=== PATIENT | male | born 1985 | race Caucasian/White ===

== ENCOUNTER 2017-10-21 13:04 | Emergency (ER) | payer MEDICAID, OTHER ==
[2017-10-21 13:21] VITALS: RESP 18
[2017-10-21] MEDS ORDERED: SODIUM CHLORIDE 0.9% 1,000 ML IV STA (13:41)
[2017-10-21] MEDS ORDERED: SODIUM CHLORIDE 0.9% 500 ML IV STA (13:41)
[2017-10-21] MEDS ORDERED: ONDANSETRON 4 MG/2 ML VIAL IVP STA (13:41)
[2017-10-21] MEDS ORDERED: KETOROLAC 30 MG/ML 1 ML VIAL IVP STA (13:41)
[2017-10-21] MEDS ORDERED: DICYCLOMINE 10 MG/ML 2 ML AMP IM STA (13:41)
[2017-10-21] MEDS ORDERED: RX INFO: IV CONTRAST WAS GIVEN 1 EACH MISC MISCELLANE PRN (13:41)
--- NOTE | 2017-10-21 13:56 | ED ---
General Adult HPI - General Chief complaint: Nausea/Vomiting/Diarrhea Stated complaint: diarrhea Time Seen by Provider: 10/21/17 13:24 Source: patient, RN notes reviewed, old records reviewed Mode of arrival: ambulatory Limitations: no limitations - History of Present Illness Initial comments: This is a 32-year-old male to the ER for evaluation today. Patient resents today for evaluation regards to nausea and vomiting abdominal pain cramping and diarrhea. Multiple shows diarrhea per day. Cramping 2 months. Patient states he always has occasional abdominal pain and pain in his back and right flank. No prior evaluation. No blood in his stool, no vomiting the patient does feel nauseous. He denies any weight loss - Related Data Home Medications Medication Instructions Recorded Confirmed No Known Home Medications [No 10/21/17 10/21/17 Known Home Medications] Allergies Allergy/AdvReac Type Severity Reaction Status Date / Time No Known Allergies Allergy Verified 10/21/17 13:49 Review of Systems ROS Statement: Those systems with pertinent positive or pertinent negative responses have been documented in the HPI. ROS Other: All systems not noted in ROS Statement are negative. Past Medical History Past Medical History: Thyroid Disorder Additional Past Medical History / Comment(s): Hypothyroidism History of Any Multi-Drug Resistant Organisms: None Reported Past Surgical History: No Surgical Hx Reported Past Psychological History: Depression Smoking Status: Never smoker Past Alcohol Use History: None Reported Past Drug Use History: None Reported - Past Family History Father Family Medical History: Congestive Heart Failure (CHF) Additional Family Medical History / Comment(s): Father at age 60 from heart failure. Mother Additional Family Medical History / Comment(s): Mother is healthy at age 60. Sister(s) Additional Family Medical History / Comment(s): He has one sister that is healthy. Brother(s) Additional Family Medical History / Comment(s): Patient has 1 brother that at age 25 from complications of alcoholism General Exam Limitations: no limitations General appearance: alert, in no apparent distress Head exam: Present: atraumatic, normocephalic, normal inspection Eye exam: Present: normal appearance, PERRL, EOMI. Absent: scleral icterus, conjunctival injection, periorbital swelling ENT exam: Present: normal exam, mucous membranes moist Neck exam: Present: normal inspection. Absent: tenderness, meningismus, lymphadenopathy Respiratory exam: Present: normal lung sounds bilaterally. Absent: respiratory distress, wheezes, rales, rhonchi, stridor Cardiovascular Exam: Present: regular rate, normal rhythm, normal heart sounds. Absent: systolic murmur, diastolic murmur, rubs, gallop, clicks GI/Abdominal exam: Present: soft, normal bowel sounds. Absent: distended, tenderness, guarding, rebound, rigid Extremities exam: Present: normal inspection, full ROM, normal capillary refill. Absent: tenderness, pedal edema, joint swelling, calf tenderness Back exam: Present: normal inspection Neurological exam: Present: alert, oriented X3, CN II-XII intact Psychiatric exam: Present: normal affect, normal mood Skin exam: Present: warm, dry, intact, normal color. Absent: rash Course Vital Signs 10/21/17 13:19 Temperature 97.8 F Pulse Rate 88 Respiratory 18 Rate Blood Pressure 144/97 O2 Sat by Pulse 99 Oximetry Medical Decision Making - Medical Decision Making 29 female the ER for evaluation, positive constipation fecal stasis with diarrhea. Patient can be discharged home - Lab Data Result diagrams: 10/21/17 13:51 10/21/17 13:51 Lab Results 10/21/17 10/21/17 10/21/17 Range/Units 13:51 13:51 13:51 WBC 7.7 (3.8-10.6) k/uL RBC 5.48 (4.30-5.90) m/uL Hgb 17.7 H (13.0-17.5) gm/dL Hct 51.7 (39.0-53.0) % MCV 94.3 (80.0-100.0) fL MCH 32.3 (25.0-35.0) pg MCHC 34.2 (31.0-37.0) g/dL RDW 12.1 (11.5-15.5) % Plt Count 275 (150-450) k/uL Neutrophils % 67 % Lymphocytes % 24 % Monocytes % 7 % Eosinophils % 1 % Basophils % 0 % Neutrophils # 5.1 (1.3-7.7) k/uL Lymphocytes # 1.9 (1.0-4.8) k/uL Monocytes # 0.5 (0-1.0) k/uL Eosinophils # 0.1 (0-0.7) k/uL Basophils # 0.0 (0-0.2) k/uL Sodium 142 (137-145) mmol/L Potassium 4.0 (3.5-5.1) mmol/L Chloride 102 (98-107) mmol/L Carbon Dioxide 28 (22-30) mmol/L Anion Gap 12 mmol/L BUN 12 (9-20) mg/dL Creatinine 0.80 (0.66-1.25) mg/dL Est GFR (CKD-EPI)AfAm >90 (>60 ml/min/1.73 sqM) Est GFR (CKD-EPI)NonAf >90 (>60 ml/min/1.73 sqM) Glucose 95 (74-99) mg/dL Calcium 9.6 (8.4-10.2) mg/dL Phosphorus 3.1 (2.5-4.5) mg/dL Magnesium 2.3 (1.6-2.3) mg/dL Total Bilirubin 0.7 (0.2-1.3) mg/dL AST 87 H (17-59) U/L ALT 220 H (21-72) U/L Alkaline Phosphatase 94 (38-126) U/L Total Creatine Kinase 124 (55-170) U/L CK-MB (CK-2) 0.5 (0.0-2.4) ng/mL CK-MB (CK-2) Rel Index 0.4 Total Protein 7.5 (6.3-8.2) g/dL Albumin 4.8 (3.5-5.0) g/dL - Radiology Data Radiology results: report reviewed (CT abdomen and pelvis shows possible fecal stasis,), image reviewed Disposition Clinical Impression: Dehydration, Constipation, Abdominal pain, Diarrhea Disposition: HOME SELF-CARE Condition: Good Instructions: Acute Nausea and Vomiting (ED), Acute Diarrhea (ED) Is patient prescribed a controlled substance at d/c from ED?: No Referrals: None,Stated [Primary Care Provider] - 1-2 days
[2017-10-21 14:01] LABS: Basophils % (A) 0 %; Eosinophils # (A) 0.1 k/uL (0-0.7); Eosinophils % (A) 1 %; HCT 51.7 % (39.0-53.0); HGB 17.7 gm/dL (13.0-17.5); Lymphocytes # (A) 1.9 k/uL (1.0-4.8); Lymphocytes % (A) 24 %; MCH 32.3 pg (25.0-35.0); MCHC 34.2 g/dL (31.0-37.0); MCV 94.3 fL (80.0-100.0); Monocytes # (A) 0.5 k/uL (0-1.0); Monocytes % (A) 7 %; Neutrophils # (A) 5.1 k/uL (1.3-7.7); Neutrophils % (A) 67 %; Platelet Count 275 k/uL (150-450); RBC 5.48 m/uL (4.30-5.90); RDW 12.1 % (11.5-15.5); WBC 7.7 k/uL (3.8-10.6)
[2017-10-21 14:10] LABS: ALT 220 U/L (21-72); AST 87 U/L (17-59); Albumin 4.8 g/dL (3.5-5.0); Alkaline Phosphatase 94 U/L (38-126); Anion Gap 12 mmol/L; Blood Urea Nitrogen 12 mg/dL (9-20); Calcium 9.6 mg/dL (8.4-10.2); Carbon Dioxide 28 mmol/L (22-30); Chloride 102 mmol/L (98-107); Glucose 95 mg/dL (74-99); Magnesium 2.3 mg/dL (1.6-2.3); Phosphorus 3.1 mg/dL (2.5-4.5); Sodium 142 mmol/L (137-145); Total Bilirubin 0.7 mg/dL (0.2-1.3); Total Protein 7.5 g/dL (6.3-8.2)
[2017-10-21 14:32] LABS: Creatine Kinase MB 0.5 ng/mL (0.0-2.4)
--- NOTE | 2017-10-21 15:17 | CT ---
EXAMINATION TYPE: CT abdomen pelvis w con DATE OF EXAM: 10/21/2017 COMPARISON: NONE HISTORY: Diarrhea, Rectal bleeding and Abdominal pain for [address] DLP: 1180 mGycm Automated exposure control for dose reduction was used. TECHNIQUE: Helical acquisition of images from the lung bases through the pelvis have been completed. CONTRAST: Performed without Oral Contrast and with IV Contrast, patient injected with 100 ml mL of Isovue 300. FINDINGS: LUNG BASES: No significant abnormality is appreciated. AORTA: No significant abnormality is appreciated. LIVER/GB: No significant abnormality is appreciated. PANCREAS: No significant abnormality is seen. SPLEEN: No significant abnormality is seen. ADRENALS: No significant abnormality is seen. KIDNEYS: No significant abnormality is seen. REPRODUCTIVE ORGANS: No significant abnormality is seen BOWEL: Retained fecal debris present within the colon. FREE AIR: No Free Air visible. ASCITES: None visible. PELVIC ADENOPATHY: None visualized. RETROPERITONEAL ADENOPATHY: No Retroperitoneal Adenopathy visible. URINARY BLADDER: No significant abnormality is seen. OSSEOUS STRUCTURES: No significant abnormality is seen. IMPRESSION: CORRELATE FOR FECAL STASIS.
[2017-10-21 15:47] VITALS: BP 140/82; PULSE 87; TEMP 97
== END 2017-10-21 15:47 | disposition home or self-care (01) ==
LOC: EC 13:04
DX: E86.0 Dehydration (principal); K59.00 Constipation, unspecified; R19.7 Diarrhea, unspecified; M54.9 Dorsalgia, unspecified
CPT/HCPCS: 36415; 80053; 82550; 82553; 83735; 84100; 85025; 74177; 99284; 96374; 96375; 96361; 96372; J0500; J2405; J1885; Q9967

== ENCOUNTER 2020-10-20 19:25 | Inpatient (IN) | payer MEDICAID, OTHER ==
--- NOTE | 2020-10-20 20:24 | ED ---
Psych HPI - General Chief Complaint: Psychiatric Symptoms Stated Complaint: Mental health Time Seen by Provider: 10/20/20 19:43 Source: patient Mode of arrival: ambulatory - History of Present Illness Initial Comments: Patient is a 35-year-old male presenting to the emergency department for psychiatric evaluation. Patient was accompanied by police, they had a court ordered pickup order for mental health evaluation. Patient was petitioned by his mother. According to the petition, mother states that patient has been driving around his neighborhood constantly, pacing around his house, and walking outside at all hours of the night. Mother is not here to provide more history. Patient states he is not sure why he is here. He denies any suicidal or homicidal thoughts. He denies any drug use, no alcohol use. He denies history of anxiety or depression. He has no further complaints at this time. - Related Data Home Medications Medication Instructions Recorded Confirmed No Known Home Medications 10/21/17 10/20/20 Allergies Allergy/AdvReac Type Severity Reaction Status Date / Time No Known Allergies Allergy Verified 10/20/20 20:27 Review of Systems ROS Statement: Those systems with pertinent positive or pertinent negative responses have been documented in the HPI. ROS Other: All systems not noted in ROS Statement are negative. Past Medical History Past Medical History: Thyroid Disorder Additional Past Medical History / Comment(s): Hypothyroidism History of Any Multi-Drug Resistant Organisms: None Reported Past Surgical History: No Surgical Hx Reported Past Psychological History: Depression Smoking Status: Never smoker Past Alcohol Use History: None Reported Past Drug Use History: None Reported - Past Family History Father Family Medical History: Congestive Heart Failure (CHF) Additional Family Medical History / Comment(s): Father at age 60 from heart failure. Mother Additional Family Medical History / Comment(s): Mother is healthy at age 60. Sister(s) Additional Family Medical History / Comment(s): He has one sister that is healthy. Brother(s) Additional Family Medical History / Comment(s): Patient has 1 brother that at age 25 from complications of alcoholism General Exam - General Exam Comments Initial Comments: GENERAL: Patient is well-developed and well-nourished. Patient is nontoxic and in no acute distress. HEAD: Atraumatic, normocephalic. EYES: Pupils equal round and reactive to light, extraocular movements intact, sclera anicteric, conjunctiva are normal. Eyelids were unremarkable. ENT: TMs normal, nares patent, oropharynx clear without exudates. Moist mucous membranes. NECK: Normal range of motion, supple without lymphadenopathy or JVD. LUNGS: Unlabored respirations. Breath sounds clear to auscultation bilaterally and equal. No wheezes rales or rhonchi. HEART: Regular rate and rhythm without murmurs, rubs or gallops. ABDOMEN: Soft, nontender, normoactive bowel sounds. No guarding, no rebound. No masses appreciated. : Deferred MUSCULOSKELETAL: Normal extremities with adequate strength and normal range of motion, no pitting or edema. No clubbing or cyanosis. NEUROLOGICAL: Patient is alert and oriented x 3. Motor and sensory are also intact. Cranial nerves II through XII grossly intact. Symmetrical smile. Normal speech, normal gait. PSYCH: Normal mood, normal affect. SKIN: Warm, Dry, normal turgor, no rashes or lesions noted. Limitations: no limitations Course Vital Signs 10/20/20 19:38 Temperature 98.8 F Pulse Rate 106 H Respiratory 18 Rate Blood Pressure 148/96 O2 Sat by Pulse 98 Oximetry Medical Decision Making - Medical Decision Making Patient is a 35-year-old male here by court order for psychiatric evaluation. Patient was petitioned by his mother for multiple items listed in his petitioned. He denies any suicidal or homicidal thoughts. Denies any drug use. He has no complaints, his exam is normal. Patient was evaluated by EPS and will be admitted to the psych unit. Case discussed with Dr. Salinas. Disposition Clinical Impression: Personality disorder Disposition: TRANSFER TO PSYCH HOSP/UNIT Condition: Stable Referrals: None,Stated [Primary Care Provider] - 1-2 days Decision Date: 10/20/20 Decision Time: 21:39
[2020-10-20] MEDS ORDERED: MAGNESIUM HYDROXIDE 2,400 MG/10 ML CUP PO PRN (23:43)
[2020-10-20] MEDS ORDERED: MAG HYDROX/AL HYDROX/SIMETH 30 ML CUP PO PRN (23:43)
[2020-10-20] MEDS ORDERED: ACETAMINOPHEN TAB 325 MG TAB PO PRN (23:43)
[2020-10-20] MEDS ORDERED: LORazepam 1 MG TAB PO PRN (23:43)
[2020-10-20] MEDS ORDERED: LORazepam 2 MG/ML INJ IM PRN (23:44)
[2020-10-20] MEDS ORDERED: HALOPERIDOL LACTATE 5 MG/ML 1 ML VIAL IM PRN (23:44)
[2020-10-20] MEDS ORDERED: haloperidoL 5 MG TAB PO PRN (23:44)
[2020-10-21 01:14] VITALS: RESP 16
--- NOTE | 2020-10-21 11:19 | P.HP ---
Psychiatric H&P - . H&P Date: 10/21/20 History & Physical: Allergies Allergy/AdvReac Type Severity Reaction Status Date / Time No Known Allergies Allergy Verified 10/21/20 02:49 Vital Signs Temp 98.4 F 10/21/20 01:09 Pulse 102 H 10/21/20 01:09 Resp 16 10/21/20 01:09 BP 143/84 10/21/20 01:09 Pulse Ox 98 10/21/20 01:09 Intake & Output 10/20/20 10/21/20 10/21/20 18:59 06:59 18:59 Weight 81.306 kg Laboratory Last Values Coronavirus (PCR) Not Detected (Not Detectd) 10/20/20 21:41 10/21/20 11:07 IDENTIFYING DATA: Patient is a single, unemployed, 35-year-old male who was petitioned and involuntarily admitted for aggressive behavior HPI: Patient presented to the hospital on 10/20/2020, brought in by police on a pickup as a patient was petitioned by his mother. As per petition, the patient has been increasingly threatening towards his mother and has been showing no desire to receive any mental health treatment. He is also been noted to be wandering outside of his home all hours of the night and has had multiple incidences of confrontation with neighbors. Upon evaluation on this unit, the patient continues to deny that he has any significant issue regarding his mental health. The patient does endorse a significant history of bipolar symptoms. He does report periods of excessive energy stating that he is gone 2-3 days without any sleep multiple times in his life. He does report a history of impulsive behaviors, most notably shortly after dropping out of college, the patient left for [place] without telling family and became homeless there for a while. The patient denies any mood swings, irritability, more anger episodes but as per petition, the patient has had multiple episodes and has even damaged his own property. The patient denies any issues with damaging his own property. In regards to depressive symptoms, the patient is not endorsing any significant symptoms of depression. He has been noted by his family to not address hygiene or take care of himself. He is also notably emaciated and malnourished before he began his stay with his mother. The patient is not endorsing any significant psychotic symptoms. He is not reporting any auditory or visual hallucinations. Although he denies any overt paranoia, the patient believes that his mother "knows the system and is trying to control my life." Patient is denying any other delusions. In regards to trauma, the patient is not endorsing any significant history of traumatic events in his life. He denies any hypervigilance, arousal, or reexperiencing phenomenon. PAST PSYCHIATRIC HISTORY: Patient states that his been previously diagnosed with depression. The patient is only able to recall being prescribed Lexapro in the past. The patient reports 2 prior inpatient psychiatric hospitalizations, the last one being 5 years ago and the first one being when he was 22 years old after he endorsed suicidal ideation after a breakup. The patient is not currently open with any outpatient psychiatric services. Patient denies any history of suicide attempts in the past. PMH: Past Medical History: Thyroid Disorder Additional Past Medical History / Comment(s): Hypothyroidism History of Any Multi-Drug Resistant Organisms: None Reported Past Surgical History: No Surgical Hx Reported Past Psychological History: Depression Smoking Status: Never smoker Past Alcohol Use History: None Reported Past Drug Use History: None Reported ALLERGIES: NO KNOWN DRUG ALLERGIES CHEMICAL DEPENDENCY HISTORY: The patient denies any tobacco, marijuana, alcohol, or illicit drug use. FAMILY PSYCHIATRIC/SUBSTANCE USE HISTORY: Patient reports that his brother was diagnosed with schizophrenia. He also reports his brother was a heavy alcoholic. His brother . SOCIAL HISTORY: Patient was born and raised in [place], [place]. The patient was studying media and communication at [employer] before dropping out. He is single, never , and has no children. He reports that he was last employed in 2007 when he was working at [employer]. He states that he is now living off an inheritance. He reports that his hobbies and interests include jyotsna and social media. MENTAL STATUS EXAM: General Appearance: Patient appears to be stated age is alert, directable, and attempts to cooperate. Patient appears to have poor hygiene and grooming. Behavior: Patient is seated without any agitated behavior. Psychomotor activity appears slightly slowed today. Speech: Patient's speech is fluent and nonpressured. Mood/Affect: Patient reports their mood is "okay." Affect is euthymic. Suicidality/Homicidality: The patient denies any suicidal or homicidal ideation, intention or months or plan. Perceptions: The patient denies any auditory or visual hallucinations. Though content/process: Some paranoid delusional thought content is endorsed. Anosognosia is present. Memory and concentration: AOX3, grossly intact for the purposes of this session. Can spell "WORLD" backwards Judgment and insight: poor STRENGTHS/WEAKNESSES: Strength is that the patient is in relatively good health and has housing. Weakness is that the patient has very poor insight. INTELLECT: average IMPRESSIONS: Bipolar disorder, unspecified PLAN: -Patient is admitted under involuntary status to [facility] for stabilization of psychiatric symptoms and safety. A second certification was completed and along with petition will be filed for court. -Medications: The patient states that he will refuse medications. We will start lithium 300 mg by mouth twice a day for mood stabilization Consider initiating Abilify with plans to transition the patient to Abilify maintena or Aristada. -Ativan and Haldol PRN for agitation/aggression -The patient reports that he'll refuse any medications. -Internal Medicine consult to perform medical evaluation and physical. -SW on board for discharge planning. Encourage patient to participate in groups to work on coping skills. 10/21/20 11:18
--- NOTE | 2020-10-21 12:53 | P.CONS ---
History of Present Illness - Reason for Consult Consult date: 10/21/20 Medical management Requesting physician: Edgar Raines - Chief Complaint Family petition - History of Present Illness This is a 35-year-old male who was petition by his mother to be admitted to the psych unit after he was found wandering on the street 4 hours at night and has been confrontational with his mom. He is currently admitted to the psych unit. I was asked to see him for medical management. Patient is awake and alert. He denies any specific concerns or complaints. Review of Systems Review of system: 14 points review of systems were obtained and were negative except to what were mentioned in the HPI. Past Medical History Past Medical History: Thyroid Disorder Additional Past Medical History / Comment(s): Hypothyroidism History of Any Multi-Drug Resistant Organisms: None Reported Past Surgical History: No Surgical Hx Reported Past Psychological History: Depression Smoking Status: Never smoker Past Alcohol Use History: None Reported Additional Past Alcohol Use History / Comment(s): Patient denies any history of smoking. He denies any medical marijuana, marijuana, street drug or alcohol use. He does not have any children. Past Drug Use History: None Reported - Past Family History Father Family Medical History: Congestive Heart Failure (CHF) Additional Family Medical History / Comment(s): Father at age 60 from heart failure. Mother Additional Family Medical History / Comment(s): Mother is healthy at age 60. Sister(s) Additional Family Medical History / Comment(s): He has one sister that is healthy. Brother(s) Additional Family Medical History / Comment(s): Patient has 1 brother that at age 25 from complications of alcoholism Medications and Allergies Home Medications Medication Instructions Recorded Confirmed Type No Known Home Medications 10/21/17 10/21/20 History Allergies Allergy/AdvReac Type Severity Reaction Status Date / Time No Known Allergies Allergy Verified 10/21/20 02:49 Physical Exam Vitals: Vital Signs Temp Pulse Pulse Resp BP BP Pulse Ox 10/21/20 01:09 98.4 F 102 H 16 143/84 98 10/20/20 19:38 98.8 F 106 H 18 148/96 98 Intake and Output 10/20/20 10/21/20 10/21/20 22:59 06:59 14:59 Other: Weight 77.111 kg 81.306 kg General: The patient is awake and alert, in no distress Eye: there is normal conjunctiva bilaterally. Neck: The neck is supple, there is no JVD. Cardiovascular: Normal S1-S2, no S3-S4, no murmurs. Respiratory: Lungs clear to auscultation bilaterally Gastrointestinal: Abdomen is soft, nontender Musculoskeletal: There is no pedal edema. Neurological:. Speech is normal. Skin: Skin is warm and dry Assessment and Plan Assessment: 1. Bipolar disorder, managed by psych Thank you for the consultation. No lab work done for me to review. Management per psych team.
[2020-10-21] MEDS: LITHIUM CARBONATE 300 MG CAP PO SCH ×2 (21:16→21:31)
[2020-10-22] MEDS: LITHIUM CARBONATE 300 MG CAP PO SCH (08:44)
--- NOTE | 2020-10-22 10:55 | P.PN ---
Progress Note - Text Progress Note Date: 10/22/20 Interval History: Patient was seen in his room and was agreeable to speak with investment underwriter in the office. Patient is currently not reporting any suicidal or homicidal ideation, intention, and/or plan. He is not reporting any auditory or visual hallucinations. He is denying any paranoia or other delusions at this time. He does state that an issue is his community, in particular his relationship with his neighbors as well as his relationship with his mother. He states that they all caused him to be confrontational. He continues to not express any remorse for his actions or his behaviors stating that he feels justified and his outbursts. The patient is not endorsing any significant symptoms of keith at this time. He is not reporting any pressured speech, racing thoughts, or mood lability. He has been adherent with his lithium and reports no significant side effects at this time. He is agreeable to starting Seroquel. Mental Status Exam: General Appearance: Patient appears to be stated age is alert, directable, and cooperative. Slightly improved hygiene and grooming. Behavior: Patient is calmly seated without any agitated behavior. Psychomotor activity appears normal today. Eye contact is appropriate. Speech: Patient's speech is fluent and nonpressured. Spontaneous, monotone, and low in volume. Mood/Affect: Mood is improving mildly, affect is congruent and constricted. Suicidality/Homicidality: Patient denies having any suicidal or homicidal don ation intent or plan. Perceptions: Patient denies any visual hallucinations and denies any auditory hallucinations Though content/process: There is no evidence of any delusional thought content and thought process is linear and goal-directed. Anosognosia is present. Memory and concentration: AOX3, grossly intact for the purposes of this session Judgment and insight: Improving mildly Assessment Bipolar disorder, unspecified Plan: -Patient continues to meet criteria for inpatient psychiatric admission for symptom stabilization and safety. Patient was petitioned and certified. He is scheduled to meet with the employment law attorney on 10/24/2020. -Medications: Increase lithium to 450 mg by mouth twice a day for mood stabilization Start Seroquel 50 mg at bedtime for mood stabilization/psychosis -When necessary Ativan and Haldol for agitation/aggression. -SW on board for discharge planning. Encouraged the patient to participate in milieu.
[2020-10-22 16:48] LABS: Amphetamine Screen,Urine Not Detected (NotDetected); Barbiturate Screen,Urine Not Detected (NotDetected); Benzodiazepines Screen,Urine Not Detected (NotDetected); Cocaine Screen,Urine Not Detected (NotDetected); Methadone Screen, Urine Not Detected (NotDetected); Opiate Screen,Urine Not Detected (NotDetected); Oxycodone Screen, Urine Not Detected (NotDetected); Phencyclidine Screen,Urine Not Detected (NotDetected); Tricyclic Antidepressant,Urine Not Detected (NotDetected); Urn Cannabinoid Scrn Not Detected (NotDetected)
[2020-10-22] MEDS: QUEtiapine 50 MG TAB PO SCH (20:59)
[2020-10-22] MEDS: LITHIUM CARBONATE 150 MG CAP PO SCH (20:59)
[2020-10-23] MEDS: LITHIUM CARBONATE 150 MG CAP PO SCH ×2 (08:38→21:19)
--- NOTE | 2020-10-23 10:16 | P.PN ---
Progress Note - Text Progress Note Date: 10/23/20 Interval History: Patient was seen in his room and was agreeable to speak with information writer in the office. Is currently not reporting any suicidal or homicidal ideation, intention, and/or plan. He denies any auditory or visual hallucinations. He is not reporting any paranoia or other delusions at this time. He has been in adherent with his medications and reports "I feel balloon headed." He other arriaza reports that he is able to tolerate the medications at this time. He d enies any issues with sleep or appetite. The patient states that he was able to speak with his mother regarding the care for his cats. He is scheduled to see an vat house laborer on 10/24/20 and states that he plans to defer. Mental Status Exam: General Appearance: Patient appears to be stated age is alert, directable, and cooperative. Improved hygiene and grooming. Behavior: Patient is calmly seated without any agitated behavior. Psychomotor activity appears normal today. Eye contact is appropriate. Speech: Patient's speech is fluent and nonpressured. Spontaneous, monotone, and normal volume Mood/Affect: Mood is improving mildly, affect is congruent and constricted. Suicidality/Homicidality: Patient denies having any suicidal or homicidal ideation intent or plan. Perceptions: Patient denies any visual hallucinations and denies any auditory hallucinations Though content/process: There is no evidence of any delusional thought content and thought process is linear and goal-directed. Memory and concentration: AOX3, grossly intact for the purposes of this session Judgment and insight: Improving mildly Assessment Bipolar disorder, unspecified Plan: -Patient continues to meet criteria for inpatient psychiatric admission for symptom stabilization and safety. Patient was petitioned and certified. He is scheduled to meet with the vat house laborer on 10/24/2020. -Medications: Continue lithium 450 mg by mouth twice a day for mood stabilization - Will draw lithium level tomorrow. Continue Seroquel 50 mg at bedtime for mood stabilization/psychosis -When necessary Ativan and Haldol for agitation/aggression. -SW on board for discharge planning. Encouraged the patient to participate in milieu.
[2020-10-23 11:48] LABS: HGB 17.6 gm/dL (13.0-17.5); MCH 34.2 pg (25.0-35.0); MCHC 35.9 g/dL (31.0-37.0); MCV 95.3 fL (80.0-100.0); Mean Platelet Volume 7.3; Platelet Count 254 k/uL (150-450); RBC 5.14 m/uL (4.30-5.90); RDW 11.9 % (11.5-15.5); WBC 6.5 k/uL (3.8-10.6)
[2020-10-23 12:14] LABS: ALT 20 U/L (4-49); AST 29 U/L (17-59); African American GFR (CKD) >90 (>60 ml/min/1.73 sqM); Alkaline Phosphatase 93 U/L (38-126); Anion Gap 9 mmol/L; Blood Urea Nitrogen 17 mg/dL (9-20); Calcium 10.2 mg/dL (8.4-10.2); Carbon Dioxide 28 mmol/L (22-30); Chloride 104 mmol/L (98-107); Glucose 80 mg/dL (74-99); Lithium <0.2 mmol/L; Non-African American GFR(CKD) >90 (>60 ml/min/1.73 sqM); Potassium 4.6 mmol/L (3.5-5.1); Sodium 141 mmol/L (137-145); Total Bilirubin 0.7 mg/dL (0.2-1.3); Total Protein 7.5 g/dL (6.3-8.2)
[2020-10-23] MEDS: QUEtiapine 50 MG TAB PO SCH (21:19)
[2020-10-24] MEDS: LITHIUM CARBONATE 150 MG CAP PO SCH (09:23)
--- NOTE | 2020-10-24 10:11 | P.PN ---
Progress Note - Text Progress Note Date: 10/24/20 Interval History: Patient was seen in his room and was agreeable to speak with check writer salesperson in the office. The patient reports that he had his court hearing regarding a tax manager public. He reports that he continues to feel like his mother is out against him and appears to be trying to control his life. He continues to deny that there was any significant issues regarding his ability to care for himself prior to this admission. The patient did sign a release of information allowing this provider to speak with his mother on the caveat that only mental health concerns were to be discussed with her. The patient's mother did share that the patient appeared to be dehydrated, disheveled, and with low weight when he began staying with her. She maintains that the target symptoms need to be addressed as the patient's paranoia, frustration tolerance, and irregular sleep schedule. Mental Status Exam: General Appearance: Patient appears to be stated age is alert, directable, and cooperative. Improved hygiene and grooming. Behavior: Patient is calmly seated without any agitated behavior. Psychomotor activity appears normal today. Eye contact is appropriate. Speech: Patient's speech is fluent and nonpressured. Spontaneous, monotone, and normal volume Mood/Affect: Mood is improving mildly, affect is congruent and constricted. Suicidality/Homicidality: Patient denies having any suicidal or homicidal ideation intent or plan. Perceptions: Patient denies any visual hallucinations and denies any auditory hallucinations Though content/process: There is no evidence of any delusional thought content and thought process is linear and goal-directed. Memory and concentration: AOX3, grossly intact for the purposes of this session Judgment and insight: Improving mildly Assessment Bipolar disorder, unspecified Plan: -Patient continues to meet criteria for inpatient psychiatric admission for symptom stabilization and safety. Patient was petitioned and certified. Patient states that he plans to defer today -Medications: Increase lithium to 450 mg by mouth daily and 600 N. grams at bedtime mood stabilization Continue Seroquel 50 mg at bedtime for mood stabilization/psychosis. Increase Seroquel to 100 mg at bedtime over the weekend. -When necessary Ativan and Haldol for agitation/aggression. -SW on board for discharge planning. Encouraged the patient to participate in milieu.
[2020-10-24] MEDS: LITHIUM CARBONATE 300 MG CAP PO SCH (21:39)
[2020-10-24] MEDS: QUEtiapine 50 MG TAB PO SCH (21:39)
[2020-10-25] MEDS: LITHIUM CARBONATE 150 MG CAP PO SCH (09:03)
[2020-10-25] MEDS: QUEtiapine 50 MG TAB PO SCH (21:12)
[2020-10-25] MEDS: LITHIUM CARBONATE 300 MG CAP PO SCH (21:12)
--- NOTE | 2020-10-25 22:20 | PN ---
PROGRESS NOTE DATE OF SERVICE: 10/25/2020. CHIEF COMPLAINT: The patient was increasingly threatening towards his mother and confrontational with neighbors. He was having agitation and property destruction, which the patient himself denied. INTERVAL HISTORY: The patient has been doing fair. He had a quiet day yesterday. He comes out of the day area some. Mostly he keeps to himself. He will interact a little with others. He does not attend groups. He continues to downplay any of the issues that were documented about concerns which brought him to the hospital. He has been losing weight and not taking care of himself very well. He has been cooperative with care. He slept fairly well last night. Today he has been up. Again he will come out of his room some. Mostly he keeps to himself. He does not attend groups. When I talked to him today, he was quite low. He did note any real problems or concerns. He took medications yesterday and today, including Seroquel and lithium as his primary psychotropic. He appears to tolerate his medications well. MENTAL STATUS: Patient gave fair eye contact. Psychomotor activity for the most part was normal. He answered questions with brief responses. He did not say much. His thoughts were clear and coherent. His affect was blunted. His mood was quiet. He had a reserved manner. He did not appear to be significantly distressed. There was no indication of thought disorder. He denied thoughts of harm. Cognition was clear. ASSESSMENT: I will continue the current diagnosis and treatment plan. I will continue psychotropic medications the same. We will get a lithium level on Tuesday. I reviewed medication issues with the patient including indications, potential side effects and concerns relating to Seroquel as far as metabolic and movement disorder issues. I also briefly reviewed warning signs of lithium toxicity. We will focus on stabilization and discharge planning. MMODL / IJN: [id number] /
[2020-10-26] MEDS: LITHIUM CARBONATE 150 MG CAP PO SCH (08:05)
--- NOTE | 2020-10-26 11:35 | PN ---
PROGRESS NOTE DATE OF SERVICE: 10/26/2020. CHIEF COMPLAINT: The patient was increasingly threatening toward his mother and confrontational with neighbors. He was having agitation and property destruction, which the patient himself denied. INTERVAL HISTORY: Patient has been doing fair. He had a quiet day yesterday. He comes out in the day area some. He tends to keep to himself. He will interact a little with others. He is seen at different times, wandering on the unit without any clear sense of purpose. He has not been attending groups. He said he slept fairly well last night. Today he has been up. He continues to be fairly quiet in his manner. Today he talked about discharge planning. He understands the situation with the pulpwood buyer, which is in place. He understands that he will be going to a alf, which he thinks is a short-term stay of a few weeks. He says he has a home where he has been living and can go back there. He continues to talk about issues he has with neighbors or whom he believes has the inciting behaviors towards him. When I talked to him about doing some therapeutic walking, he said that he would try to walk in the neighborhood, but the neighbors will come out of the house and make very aggressive comments towards him. We talked about his history and he seemed to have similar difficulties going back, including during a previous admission here in 2016. Also, he had admission when he was 21. He does not clearly identify a full range of manic symptoms. He has had some episodes of depression when I talked to him about the issues of "recurring depression." He tended to minimize that and would write off problems. He has had 2 external situations. He said much of what has been documented in medical records and reported by people like his mother just are planted view points and not very accurate to what he actually was dealing with. It is noteworthy that he had been trying to finish a college degree in [employer], though he dropped out apparently when he was fairly well along in his program. He says at this point, he does not have interest in that because he does not think that he has much opportunity given his age and lack of a reasonable resume. He says he does not clearly have an idea of what he wants to do as far as a direction in his life. He does say he has thoughts about making efforts at getting involved in investing and the stock market as one avenue of pursuit for him. He says that he has been sleeping fairly well at night. He noted that yesterday he had an episode where he got shaky in his arms and legs that seemed to settle down. He has not had further problems with that. He otherwise seems to tolerate his psychotropic medications. MENTAL STATUS: Patient sat with a little restlessness. He gave fair eye contact. He talked quite a bit. At times, he seemed to ramble and would give excessive detail about different situations that were problematic for him. His affect was somewhat intense. Mood was down. He seemed to be moderately distressed. There is at least some suggestion of paranoid thinking. He voiced no thoughts of harm. Cognition was clear. ASSESSMENT: I will continue the current diagnosis and treatment plan. I will continue psychotropic medications the same. We will get a lithium level tomorrow. I talked to him about medication issues including morning sums of lithium toxicity. We will monitor to see if some of the shaking that he has been having could relate to lithium versus Seroquel. We will coordinate with [facility] in regard to discharge planning. We will continue to focus on stabilization and discharge planning. MMALVERTOL / ROELN: [id number] /
[2020-10-26] MEDS ORDERED: ALBUTEROL INHALER 60 PUFF/8 GM INHALER (MHU) INHALATION PRN (13:35)
[2020-10-26] MEDS: QUEtiapine 50 MG TAB PO SCH (21:21)
[2020-10-26] MEDS: LITHIUM CARBONATE 300 MG CAP PO SCH (21:21)
[2020-10-27] MEDS: LITHIUM CARBONATE 150 MG CAP PO SCH (08:28)
--- NOTE | 2020-10-27 15:59 | PN ---
PROGRESS NOTE DATE OF SERVICE: 10/27/2020 CHIEF COMPLAINT: The patient was increasingly threatening toward his mother and confrontational with neighbors. He was having agitation and property destruction, which the patient himself denied. INTERVAL HISTORY: Patient has been doing fair. He had a quiet day yesterday. He comes out in the day area. He tends to wander about. He does not interact much with others. Mostly he will walk from one end of the unit to another. He does some therapeutic walking where he seems to try to relax himself. It is noteworthy that he tends to keep his eye gaze off seemingly in the distance and does not pay too much attention to things going on around him. He has a quiet manner and does not interact much with others. He said he slept well last night. Today he has been up and continues about the same. He voiced no specific complaints or concerns. He continues to show some fair response to internal stimuli. Whether or not he has some more clear paranoid thinking remains to be seen. He is cooperative with treatment and says that he tolerates his psychotropic medications. Noted that his lithium level today was 0.7. He tolerates his psychotropic medications. It is noted that [facility] is working to set up a living situation at [facility], and they anticipate he would be able to move there tomorrow. MENTAL STATUS: Patient gave fair eye contact. He was a little restless. He answered questions with brief responses. His thoughts were clear. He tends to have a somewhat distant way of relating. His affect was blunted, his mood reserved. He did not appear to be distressed. He seems to show some indication of thought disorder with a mild degree of paranoid thinking and possible response to internal stimuli. H voices no thoughts of harm. Cognition was clear. ASSESSMENT: I will continue the current diagnosis and treatment plan. Patient will continue lithium carbonate 450 mg in the morning, 600 mg in the evening, and Seroquel 50 mg at bedtime. I reviewed medication issues with the patient, including indications, side effects and longer-term concerns relating to metabolics and movement disorder issues with Seroquel. We also talked about warning signs of lithium toxicity and indications for blood levels. I will check a basic metabolic profile, lipid profile and lithium level in the morning. I anticipate discharging the patient tomorrow to [facility]. MMODL / IJN: [id number] /
[2020-10-27] MEDS: QUEtiapine 50 MG TAB PO SCH (21:33)
[2020-10-27] MEDS: LITHIUM CARBONATE 300 MG CAP PO SCH (21:33)
[2020-10-28 00:30] VITALS: BP 118/61; PULSE 59; TEMP 97.6
[2020-10-28 08:05] LABS: African American GFR (CKD) >90 (>60 ml/min/1.73 sqM); Anion Gap 5 mmol/L; Blood Urea Nitrogen 15 mg/dL (9-20); Calcium 9.6 mg/dL (8.4-10.2); Carbon Dioxide 29 mmol/L (22-30); Chloride 104 mmol/L (98-107); Glucose 82 mg/dL (74-99); Lithium 0.8 mmol/L; Non-African American GFR(CKD) 90 (>60 ml/min/1.73 sqM); Sodium 138 mmol/L (137-145)
[2020-10-28] MEDS: LITHIUM CARBONATE 150 MG CAP PO SCH (08:18)
[2020-10-28 16:42] LABS: Chol/HDL Ratio 4.67; Cholesterol 201 mg/dL (0-200); LDL Cholesterol,Calculated 126.2 mg/dL (0.0-131.0)
--- NOTE | 2020-10-28 18:54 | DS ---
DISCHARGE SUMMARY DATE OF ADMISSION: 10/20/2020 DATE OF DISCHARGE: 10/28/2020 ADMISSION AND DISCHARGE DIAGNOSIS: Bipolar affective disorder. HISTORY OF PRESENTING ILLNESS: The patient was brought to the ED on a pick-up order from a petition filed by his mother. The petition indicated that he was becoming increasingly threatening towards his mother and was not following through with mental health followup. He had incidents of confrontation with neighbors. He had episodes of manic symptoms that included excessive energy, decreased need for sleep, impulsive behavior, elevated mood. He would get into these episodes for 2 to 3 days at a time. Apparently the patient was noted in petition to have multiple episodes as above along with causing property destruction. For the patient's part, he reported that none of this is accurate and that he did not believe that any of these issues were impacting him. He was also reporting no depressive symptoms, though family noted that he was not making much effort to take care of himself. Appetite was down. He had been losing weight. There did seem to be some indication of paranoid thinking. The patient had two prior psychiatric hospitalizations with the last being 5 years ago and the first when he was 22 years old. He was not involved in any mental health followup at the time of admission. He was not on any psychotropic medications. He was admitted for further evaluation. MENTAL STATUS EXAMINATION: Patient showed poor hygiene and grooming. He sat without restlessness and overall psychomotor activity was slowed. Speech was fluent and non-pressured. His mood was not clearly down or depressed. The patient was denying any thoughts of harm. There were indications of paranoid delusions. Cognition was clear. COURSE OF HOSPITALIZATION: The patient was admitted for comprehensive medical, psychiatric and psychosocial evaluation. We engaged the patient in individual and group therapeutic activities. On admission, the patient was started on lithium 300 mg twice a day. Certification was completed in support of the petition for involuntary treatment. Initially the patient was making statements that he would refuse medications; on the other hand, he did accept lithium and also was in agreement with starting Seroquel. As his hospitalization progressed his lithium was titrated up to 450 mg in the morning, 600 mg in the evening. He was started on Seroquel 50 mg a day. The patient was fully informed in regard to the petition process and indicated that he would sign a deferral. It is also noted that while he had some paranoid thoughts about his mother and her intentions, she did sign a release. In contact with mother, she talked about how he had been losing weight and may have been dehydrated. There was also concern that he was exhibiting paranoid thinking, especially how he perceived things with people like his neighbors, who he believes were threatening him. It is noted that during his hospitalization the patient elected not to attend groups. Often he would be out on the unit. He would walk quite a bit from one end to the other. Much of the time when he would be out walking he did not seem to pay much attention to anyone around him; he seemed to be lost in his own thoughts. He was appropriate in his interactions with staff. He did not interact too much with peers, though for the most part was appropriate. He was able to engage in some productive conversations about what he saw for his future. It is noted that he had been in higher education pursuing a degree in [employer], though he felt that was probably not the best option for him at this time. He acknowledged that he probably struggled in the past with episodes of depression, though at the time tended to not seek out help and he would minimize the issues. On the day prior to admission his lithium level was 0.7. He was able to engage appropriately in discharge planning. CONDITION AT DISCHARGE: Patient's mood was improved. He had a better outlook. He voiced no thoughts of harm to self or others. He tolerated his psychotropic medications. RECOMMENDATIONS AND FOLLOWUP: Discharge medications include lithium carbonate 450 mg in the morning, 600 mg in the evening, and Seroquel 50 mg at bedtime. He has a followup with [facility] on 10/28/2020 at 1 p.m. He also will see Dr. Nunez 11/05/2020 at 12 noon with transportation provided by vesta Butcher of [facility]. He was referred to [facility] for primary care followup. He was informed and had good understanding of issues relating to lithium toxicity and understood that he would need follow-up blood levels. On 10/27 at 0700 hours, his lithium level was 0.7. On 10/28 at 0655 hours his level was 0.8. MMODL / IJN: [id number] /
== END 2020-10-28 13:20 | disposition home or self-care (01) | DRG 885 ==
LOC: EC 19:25 → 3MHU 23:30
PROVIDERS: ADMIT Psychiatry & Neurology Psychiatry; ATTEND Psychiatry & Neurology Psychiatry
DX: F31.9 Bipolar disorder, unspecified (principal); F22 Delusional disorders; F60.9 Personality disorder, unspecified; E03.9 Hypothyroidism, unspecified; Z79.899 Other long term (current) drug therapy; Z81.8 Family history of other mental and behavioral disorders; Z82.49 Family history of ischemic heart disease and other diseases of the circulatory system; Z20.822 Contact with and (suspected) exposure to COVID-19
CPT/HCPCS: 80048; 80053; 80061; 80178; 80306; 82075; 83036; 84443; 85027; 87635; 99285

== ENCOUNTER 2020-12-24 13:19 | Emergency (ER) | payer OTHER ==
[2020-12-24 13:24] VITALS: RESP 18
--- NOTE | 2020-12-24 14:03 | ED ---
Psych HPI - General Chief Complaint: Psychiatric Symptoms Stated Complaint: Home Appliance Tech Order Time Seen by Provider: 12/24/20 13:27 Source: patient, police, RN notes reviewed Mode of arrival: ambulatory Limitations: no limitations - History of Present Illness Initial Comments: 35-year-old male presents emergency Department with chief complaint of psychiatric cloth picker order. Patient states that he misses [facility] 0.8. He denies being suicidal or homicidal denies any drug or alcohol abuse. Patient is currently being treated by [facility] for bipolar disorder. Patient has no complaints himself. - Related Data Home Medications Medication Instructions Recorded Confirmed ARIPiprazole [Abilify] 5 mg PO HS 12/24/20 12/24/20 [place] Carbonate 900 mg PO HS 12/24/20 12/24/20 Sennosides/Docusate Sodium [Colace 1 tab PO BID PRN 12/24/20 12/24/20 2-in-1 Tablet] Previous Rx's Medication Instructions Recorded QUEtiapine [SEROquel] 50 mg PO HS #30 tab 10/28/20 Allergies Allergy/AdvReac Type Severity Reaction Status Date / Time No Known Allergies Allergy Verified 12/24/20 14:02 Review of Systems ROS Statement: Those systems with pertinent positive or pertinent negative responses have been documented in the HPI. ROS Other: All systems not noted in ROS Statement are negative. Past Medical History Past Medical History: Thyroid Disorder Additional Past Medical History / Comment(s): Hypothyroidism History of Any Multi-Drug Resistant Organisms: None Reported Past Surgical History: No Surgical Hx Reported Past Psychological History: Depression Smoking Status: Never smoker Past Alcohol Use History: None Reported Past Drug Use History: None Reported - Past Family History Father Family Medical History: Congestive Heart Failure (CHF) Additional Family Medical History / Comment(s): Father at age 60 from heart failure. Mother Additional Family Medical History / Comment(s): Mother is healthy at age 60. Sister(s) Additional Family Medical History / Comment(s): He has one sister that is healthy. Brother(s) Additional Family Medical History / Comment(s): Patient has 1 brother that at age 25 from complications of alcoholism General Exam Limitations: no limitations General appearance: alert, in no apparent distress Head exam: Present: atraumatic, normocephalic, normal inspection Eye exam: Present: normal appearance, PERRL, EOMI. Absent: scleral icterus, conjunctival injection, periorbital swelling Respiratory exam: Present: normal lung sounds bilaterally. Absent: respiratory distress, wheezes, rales, rhonchi, stridor Cardiovascular Exam: Present: regular rate, normal rhythm, normal heart sounds. Absent: systolic murmur, diastolic murmur, rubs, gallop, clicks Neurological exam: Present: alert, oriented X3, CN II-XII intact Psychiatric exam: Present: normal affect, normal mood Course Vital Signs 12/24/20 13:20 Temperature 98.8 F Pulse Rate 92 Respiratory 18 Rate Blood Pressure 148/87 O2 Sat by Pulse 97 Oximetry Medical Decision Making - Medical Decision Making EPS did evaluate the patient patient missed his [facility] appointment was brought in on corner cloth picker, patient is not suicidal or homicidal. Patient discharged in stable condition. Disposition Clinical Impression: Bipolar disorder Disposition: HOME SELF-CARE Condition: Stable Instructions (If sedation given, give patient instructions): Bipolar Disorder (ED) Additional Instructions: Please return to the Emergency Department if symptoms worsen or any other concerns. Is patient prescribed a controlled substance at d/c from ED?: No Referrals: None,Stated [Primary Care Provider] - 1-2 days Time of Disposition: 14:32
[2020-12-24 14:50] LABS: Amphetamine Screen,Urine Not Detected (NotDetected); Barbiturate Screen,Urine Not Detected (NotDetected); Benzodiazepines Screen,Urine Not Detected (NotDetected); Cocaine Screen,Urine Not Detected (NotDetected); Methadone Screen, Urine Not Detected (NotDetected); Opiate Screen,Urine Not Detected (NotDetected); Oxycodone Screen, Urine Not Detected (NotDetected); Phencyclidine Screen,Urine Not Detected (NotDetected); Tricyclic Antidepressant,Urine Not Detected (NotDetected); Urn Cannabinoid Scrn Not Detected (NotDetected)
[2020-12-24 14:55] VITALS: BP 142/88; PULSE 82; TEMP 97.9
== END 2020-12-24 14:54 | disposition home or self-care (01) ==
LOC: EEVIPCON 13:19 → EC 13:19
DX: F31.9 Bipolar disorder, unspecified (principal)
CPT/HCPCS: 80306; 82075; 99283

== ENCOUNTER 2021-01-07 19:56 | Inpatient (IN) | payer MEDICAID, OTHER ==
--- NOTE | 2021-01-07 21:18 | ED ---
General Adult HPI - General Chief complaint: Psychiatric Symptoms Stated complaint: Mental health Time Seen by Provider: 01/07/21 20:35 Source: patient, police Mode of arrival: ambulatory Limitations: no limitations - History of Present Illness Initial comments: Dictation was produced using [employer] dictation software. please excuse any grammatical, word or spelling errors. Chief Complaint: 35-year-old male right in for psych evaluation status post court ordered petition History of Present Illness: 35-year-old male was brought in by law enforcement. Patient has a court order petition for patient. Patient is not why he is petiti on. Condition documents are with him from law enforcement. Does not give any detail as to why. Patient states he missed one appointment and that's why he thinks he is here. Patient denies any suicidal or homicidal ideation. Has no medical complaints The ROS documented in this emergency department record has been reviewed and confirmed by me. Those systems with pertinent positive or negative responses have been documented in the HPI. All other systems are other negative and/or noncontributory. PHYSICAL EXAM: General Impression: Alert and oriented x3, not in acute distress HEENT: Normocephalic atraumatic, extra-ocular movements intact, pupils equal and reactive to light bilaterally, mucous membranes moist. Cardiovascular: Heart regular rate and rhythm Chest: Able to complete full sentences, no retractions, no tachypnea Abdomen: abdomen soft, non-tender, non-distended, no organomegaly Musculoskeletal: Pulses present and equal in all extremities, no peripheral edema Motor: no focal deficits noted Neurological: CN II-XII grossly intact, no focal motor or sensory deficits noted Skin: Intact with no visualized rashes Psych: Normal affect and mood ED course: 35-year-old male presents for psychiatric evaluation after court order condition. Vital signs upon arrival are within acceptable limits. Patient has benign physical examination. Not showing any signs of distress. He is cooperative and pleasant. Patient medically cleared for EPS evaluation. Patient was admitted to inpatient psych. - Related Data Home Medications Medication Instructions Recorded Confirmed ARIPiprazole [Abilify] 5 mg PO HS 12/24/20 01/07/21 [place] Carbonate 900 mg PO HS 12/24/20 01/07/21 Sennosides/Docusate Sodium [Colace 1 tab PO BID PRN 12/24/20 01/07/21 2-in-1 Tablet] Previous Rx's Medication Instructions Recorded QUEtiapine [SEROquel] 50 mg PO HS #30 tab 10/28/20 Allergies Allergy/AdvReac Type Severity Reaction Status Date / Time No Known Allergies Allergy Verified 01/07/21 21:43 Review of Systems ROS Statement: Those systems with pertinent positive or pertinent negative responses have been documented in the HPI. ROS Other: All systems not noted in ROS Statement are negative. Past Medical History Past Medical History: Thyroid Disorder Additional Past Medical History / Comment(s): Hypothyroidism History of Any Multi-Drug Resistant Organisms: None Reported Past Surgical History: No Surgical Hx Reported Past Psychological History: Anxiety, Bipolar, Depression Smoking Status: Never smoker Past Alcohol Use History: None Reported Past Drug Use History: None Reported - Past Family History Father Family Medical History: Congestive Heart Failure (CHF) Additional Family Medical History / Comment(s): Father at age 60 from heart failure. Mother Additional Family Medical History / Comment(s): Mother is healthy at age 60. Sister(s) Additional Family Medical History / Comment(s): He has one sister that is healthy. Brother(s) Additional Family Medical History / Comment(s): Patient has 1 brother that at age 25 from complications of alcoholism General Exam Limitations: no limitations Course Vital Signs 01/07/21 20:13 Temperature 98.1 F Pulse Rate 98 Respiratory 20 Rate Blood Pressure 153/99 O2 Sat by Pulse 97 Oximetry Medical Decision Making - Lab Data Result diagrams: 01/08/21 07:32 01/08/21 07:32 Disposition Clinical Impression: Psychiatric care Disposition: ADMITTED IP TO THIS HOSP Condition: Good
[2021-01-08] MEDS ORDERED: MAG HYDROX/AL HYDROX/SIMETH 30 ML CUP PO PRN (01:59)
[2021-01-08] MEDS ORDERED: LORazepam 1 MG TAB PO PRN (01:59)
[2021-01-08] MEDS ORDERED: ACETAMINOPHEN TAB 325 MG TAB PO PRN (01:59)
[2021-01-08] MEDS ORDERED: MAGNESIUM HYDROXIDE 2,400 MG/10 ML CUP PO PRN (01:59)
[2021-01-08] MEDS ORDERED: HALOPERIDOL LACTATE 5 MG/ML 1 ML VIAL IM PRN (02:05)
[2021-01-08] MEDS ORDERED: LORazepam 2 MG/ML INJ IM PRN (02:07)
[2021-01-08 08:27] LABS: Basophils # (A) 0.1 k/uL (0-0.2); Basophils % (A) 1 %; Eosinophils # (A) 0.1 k/uL (0-0.7); Eosinophils % (A) 1 %; HCT 48.7 % (39.0-53.0); HGB 16.5 gm/dL (13.0-17.5); Lymphocytes # (A) 2.2 k/uL (1.0-4.8); Lymphocytes % (A) 24 %; MCH 33.5 pg (25.0-35.0); MCHC 33.9 g/dL (31.0-37.0); MCV 98.8 fL (80.0-100.0); Monocytes # (A) 0.7 k/uL (0-1.0); Monocytes % (A) 8 %; Neutrophils # (A) 6.1 k/uL (1.3-7.7); Neutrophils % (A) 65 %; Platelet Count 268 k/uL (150-450); RBC 4.92 m/uL (4.30-5.90); RDW 11.7 % (11.5-15.5); WBC 9.4 k/uL (3.8-10.6)
[2021-01-08 08:39] LABS: Lithium 0.3 mmol/L
[2021-01-08 08:59] LABS: ALT 225 U/L (4-49); AST 85 U/L (17-59); African American GFR (CKD) >90 (>60 ml/min/1.73 sqM); Albumin 4.2 g/dL (3.5-5.0); Alkaline Phosphatase 113 U/L (38-126); Anion Gap 7 mmol/L; Blood Urea Nitrogen 11 mg/dL (9-20); Calcium 9.6 mg/dL (8.4-10.2); Carbon Dioxide 26 mmol/L (22-30); Chloride 104 mmol/L (98-107); Glucose 86 mg/dL (74-99); Non-African American GFR(CKD) >90 (>60 ml/min/1.73 sqM); Potassium 4.5 mmol/L (3.5-5.1); Sodium 137 mmol/L (137-145); Total Bilirubin 0.4 mg/dL (0.2-1.3); Total Protein 6.7 g/dL (6.3-8.2)
--- NOTE | 2021-01-08 13:30 | P.HP ---
Psychiatric H&P - . H&P Date: 01/08/21 History & Physical: Allergies Allergy/AdvReac Type Severity Reaction Status Date / Time No Known Allergies Allergy Verified 01/07/21 21:43 Vital Signs Temp 98.5 F 01/08/21 02:59 Pulse 83 01/08/21 02:59 Resp 16 01/08/21 02:59 BP 142/87 01/08/21 02:59 Pulse Ox 99 01/08/21 02:59 Intake & Output 01/07/21 01/08/21 01/08/21 18:59 06:59 18:59 Weight 86.183 kg Laboratory Last Values WBC 9.4 k/uL (3.8-10.6) 01/08/21 07:32 RBC 4.92 m/uL (4.30-5.90) 01/08/21 07:32 Hgb 16.5 gm/dL (13.0-17.5) 01/08/21 07:32 Hct 48.7 % (39.0-53.0) 01/08/21 07:32 MCV 98.8 fL (80.0-100.0) 01/08/21 07:32 MCH 33.5 pg (25.0-35.0) 01/08/21 07:32 MCHC 33.9 g/dL (31.0-37.0) 01/08/21 07:32 RDW 11.7 % (11.5-15.5) 01/08/21 07:32 Plt Count 268 k/uL (150-450) 01/08/21 07:32 MPV 8.0 01/08/21 07:32 Neutrophils % 65 % 01/08/21 07:32 Lymphocytes % 24 % 01/08/21 07:32 Monocytes % 8 % 01/08/21 07:32 Eosinophils % 1 % 01/08/21 07:32 Basophils % 1 % 01/08/21 07:32 Neutrophils # 6.1 k/uL (1.3-7.7) 01/08/21 07:32 Lymphocytes # 2.2 k/uL (1.0-4.8) 01/08/21 07:32 Monocytes # 0.7 k/uL (0-1.0) 01/08/21 07:32 Eosinophils # 0.1 k/uL (0-0.7) 01/08/21 07:32 Basophils # 0.1 k/uL (0-0.2) 01/08/21 07:32 Sodium 137 mmol/L (137-145) 01/08/21 07:32 Potassium 4.5 mmol/L (3.5-5.1) 01/08/21 07:32 Chloride 104 mmol/L (98-107) 01/08/21 07:32 Carbon Dioxide 26 mmol/L (22-30) 01/08/21 07:32 Anion Gap 7 mmol/L 01/08/21 07:32 BUN 11 mg/dL (9-20) 01/08/21 07:32 Creatinine 0.95 mg/dL (0.66-1.25) 01/08/21 07:32 Est GFR (CKD-EPI)AfAm >90 (>60 ml/min/1.73 sqM) 01/08/21 07:32 Est GFR (CKD-EPI)NonAf >90 (>60 ml/min/1.73 sqM) 01/08/21 07:32 Glucose 86 mg/dL (74-99) 01/08/21 07:32 Calcium 9.6 mg/dL (8.4-10.2) 01/08/21 07:32 Total Bilirubin 0.4 mg/dL (0.2-1.3) 01/08/21 07:32 AST 85 U/L (17-59) H 01/08/21 07:32 ALT 225 U/L (4-49) H 01/08/21 07:32 Alkaline Phosphatase 113 U/L (38-126) 01/08/21 07:32 Total Protein 6.7 g/dL (6.3-8.2) 01/08/21 07:32 Albumin 4.2 g/dL (3.5-5.0) 01/08/21 07:32 TSH 11.800 mIU/L (0.465-4.680) H 01/08/21 07:32 [place] 0.3 mmol/L 01/08/21 07:32 01/08/21 13:29 IDENTIFYING DATA: Patient is a single, unemployed, 35 male who was brought in under court mushroom picker order for nonadherence with treatment. HPI: Patient presented to the hospital on 01/07/2021, brought in by police under court order as patient was noncompliant with his current treatment order. Per crisis alert from Dr Redmond at [facility], the recommendation is inpatient psychiatric treatment and administration of abilify maintena. As per crisis alert, the patient reportedly barricaded himself in his room and has been displaying si gnificant symptoms of paranoia. Patient vehemently denies that this is the case. He does report that he has been having difficulty with selling his house and became quite anxious and frantic and that is why he canceled his appointments with [facility]. He believes he only missed one appointment and is unsure why he was brought to the hospital under court order because of this. The patient maintains that he has been adherent with his prescribed medications of Seroquel, Abilify, and lithium. In regards to mood symptoms, the patient is not reporting any suicidal or homicidal ideation, intention, and/or plan. He is not reporting any auditory or visual hallucinations. He is denying any paranoia or delusions at this time. The patient is not reporting any significant symptoms depression. He states that he has been sleeping well, eating well, and has been able to address his hygiene and ADLs. When inquiring about him barricading himself in his room, the patient does not recall doing such thing. The patient was scheduled for mental health court yesterday morning, but did not attend. He states he did not go because he felt like he would "make things worse." He reports he "did not have nice pants." He believed he would not present himself in the way he want to. On reflection with the patient about the reasons for his prior inpatient psychiatric admission, the patient does admit that he could've handled things differently with his neighbors. He understands that he should not have been confrontational with them or damaged his own property. PAST PSYCHIATRIC HISTORY: Patient was most recently admitted onto the psychiatric unit from 10/21/20 - 10/28/20. The patient has a working diagnosis of schizoaffective disorder, bipolar type. Patient was last discharged on a regimen of Abilify, Seroquel, and lithium. These medications were continued by [facility]. He has also been previously prescribed Lexapro in the past for depression. The patient has had 3 prior inpatient psychiatric admissions in total. He denies any prior attempts at suicide. PMH: Past Medical History: Thyroid Disorder Additional Past Medical History / Comment(s): Hypothyroidism History of Any Multi-Drug Resistant Organisms: None Reported Past Surgical History: No Surgical Hx Reported Past Psychological History: Anxiety, Bipolar, Depression Smoking Status: Never smoker Past Alcohol Use History: None Reported Past Drug Use History: None Reported ALLERGIES: NO KNOWN DRUG ALLERGIES CHEMICAL DEPENDENCY HISTORY: Patient denies any tobacco, marijuana, alcohol, or illicit drug use. FAMILY PSYCHIATRIC/SUBSTANCE USE HISTORY: Patient has a brother diagnosed with schizophrenia and alcohol use disorder. He reports that his brother . SOCIAL HISTORY: Patient was born and raised in [place], [place]. He was studying media and communication at [employer] before dropping out. He is single, never , and has no children. He was last employed in 2007. MENTAL STATUS EXAM: General Appearance: Patient appears to be stated age is alert, directable, and attempts to cooperate. Patient appears to have fair hygiene and grooming. Behavior: Patient is seated without any agitated behavior. Psychomotor activity is normal. Eye contact is appropriate. Speech: Patient's speech is fluent and nonpressured. Mood/Affect: Patient reports their mood is "confused," affect is constricted but euthymic. Suicidality/Homicidality: Patient denies having any homicidal ideation intent or plan. Denies any suicidal ideations intent or plan Perceptions: Patient denies any visual hallucinations and denies any auditory hallucinations Though content/process: There is no evidence of any delusional thought content and thought process is linear and goal-directed. Memory and concentration: AOX3, grossly intact for the purposes of this session. Can spell "WORLD" backwards Judgment and insight: Poor STRENGTHS/WEAKNESSES: strength is that patient is resilient. Weakness is that patient has poor judgment and is impulsive INTELLECT: average IMPRESSIONS: Schizoaffective Disorder, bipolar type PLAN: -Patient is admitted under involuntary status - Pick-up order due to nonadherence with his court-ordered treatment -We will need to coordinate with [facility] about symptoms as patient is not endorsing much today. We will continue to encourage the patient to allow us to speak to his mother. -Medications : Abilify 10 mg daily for mood stabilization, with plans to transition to abilify maintena Increase lithium to 450 mg twice daily -Ativan and Haldol PRN for agitation/aggression -Patient was informed of the risks, benefits and side effects of the medication and patient verbally consented to taking the medications. -Internal Medicine consult to perform medical evaluation and physical. -SW on board for discharge planning. Encourage patient to participate in groups to work on coping skills. 01/08/21 13:29
[2021-01-08 14:36] LABS: Hemoglobin A1C 4.7 % (4.0-6.0)
--- NOTE | 2021-01-08 17:56 | P.HPMEDMHU ---
History of Present Illness H&P Date: 01/08/21 History of Presenting Illness: Patient is a 35-year-old male with a past medical history of depression, anxiety, schizoaffective disorder and bipolar disorder. Patient currently admitted under psychiatric team with court ordered petition secondary to nonad herence with court ordered treatment program. Per documentation patient has been reportedly barricading himself in his room displaying significant signs of paranoia. We have been consulted for general medical management throughout his hospitalization. Upon physical examination on unit, patient appearing anxious reports that he is currently hospitalized here because he was petition by the courts for missed [facility] appointments. Patient reports that he missed these appointments because he was sick. Patient currently denies use of alcohol, drugs, or cigarette smoking. Patient denies having any other complaints including headache, lightheadedness, dizziness, chest pain, palpitations, shortness of breath, abdominal pain, nausea, vomiting, changes in appetite, or experiencing any numbness/tingling/weakness/swelling in his extremities. Patient denies having any suicidal or homicidal ideations and denies having any visual, auditory, or tactile hallucinations. Review of systems: Pertinent positives and negatives as discussed in HPI, a complete review of systems was performed and all other systems are negative. Physical exam: Vital signs reviewed and stable. General: Nontoxic, no distress and appears stated age. Derm: Skin warm and dry, normal coloration for ethnicity. Head: Atraumatic, normocephalic and symmetric. Eyes: EOMs intact, no lid lag, and anicteric sclera Mouth: no lip lesions, mucus membranes moist Cardiovascular: regular rate and rhythm with normal S1S2, no murmur, positive p osterior tibial pulses bilaterally, and cap refill < 2 seconds. Lungs: Respirations even, regular, and unlabored on room air. Lungs CTA bilaterally, no rhonchi, no rales, no wheezing, and no accessory muscle usage. Abdominal: soft, nontender to palpation, no guarding, no appreciable organomegaly Ext: ROM intact. No gross muscle atrophy, no edema, no contractures Neuro: Speech clear, face symmetrical and CN II-XII grossly intact with no noted focal neuro deficits Psych: Alert and oriented to person, place, time, and situation. Appropriate behaviors with anxious affect. Assessment and Plan of Care: History of hypothyroidism -Not currently taking any medications. TSH 11.800. -We will obtain a free T4 Depression, anxiety, schizoaffective disorder and bipolar disorder -Management per primary admitting psychiatric team. Thank you for allowing us to participate in the care of this pleasant patient. Do not hesitate to contact us with questions. RN to notify provider with any needs. Someone can be reached from the [facility] hospitalist group all h ours of the day at [phone] or via [employer]. Past Medical History Past Medical History: Thyroid Disorder Additional Past Medical History / Comment(s): Hypothyroidism History of Any Multi-Drug Resistant Organisms: None Reported Past Surgical History: No Surgical Hx Reported Past Psychological History: Anxiety, Bipolar, Depression Smoking Status: Never smoker Past Alcohol Use History: None Reported Past Drug Use History: None Reported - Past Family History Father Family Medical History: Congestive Heart Failure (CHF) Additional Family Medical History / Comment(s): Father at age 60 from heart failure. Mother Additional Family Medical History / Comment(s): Mother is healthy at age 60. Sister(s) Additional Family Medical History / Comment(s): He has one sister that is healthy. Brother(s) Additional Family Medical History / Comment(s): Patient has 1 brother that at age 25 from complications of alcoholism Medications and Allergies Home Medications Medication Instructions Recorded Confirmed Type QUEtiapine [SEROquel] 50 mg PO HS #30 tab 10/28/20 01/07/21 Rx ARIPiprazole [Abilify] 5 mg PO HS 12/24/20 01/07/21 History [place] Carbonate 900 mg PO HS 12/24/20 01/07/21 History Sennosides/Docusate Sodium [Colace 1 tab PO BID PRN 12/24/20 01/07/21 History 2-in-1 Tablet] Allergies Allergy/AdvReac Type Severity Reaction Status Date / Time No Known Allergies Allergy Verified 01/07/21 21:43 Physical Exam Vitals: Vital Signs Temp Pulse Pulse Resp BP BP Pulse Ox 01/08/21 02:59 98.5 F 83 16 142/87 99 01/07/21 20:13 98.1 F 98 20 153/99 97 Cranial Nerve Examination - Cranial Nerves Cranial Nerve II- Optic: Intact Cranial Nerve III- Oculomotor: Intact Cranial Nerve IV- Trochlear: Intact Cranial Nerve V- Trigeminal: Intact Cranial Nerve - Abducens: Intact Cranial Nerve VII- Facial: Intact Cranial Nerve VIII- Auditory: Intact Cranial Nerve IX- Glossopharyngeal: Intact Cranial Nerve X- Vagus: Intact Cranial Nerve XI- Accessory: Intact Cranial Nerve XII- Hypoglossal: Intact Results CBC & Chem 7: 01/08/21 07:32 01/08/21 07:32 Labs: Abnormal Lab Results - Last 24 Hours (Table) 01/08/21 Range/Units 07:32 AST 85 H (17-59) U/L ALT 225 H (4-49) U/L TSH 11.800 H (0.465-4.680) mIU/L
[2021-01-08] MEDS ORDERED: ARIPiprazole 5 MG TAB PO SCH (21:00)
[2021-01-08] MEDS ORDERED: LITHIUM CARBONATE 300 MG CAP PO SCH (21:00)
[2021-01-08] MEDS: LITHIUM CARBONATE 150 MG CAP PO SCH (21:13)
[2021-01-09] MEDS: LEVOTHYROXINE 88 MCG TAB PO SCH (06:22)
[2021-01-09] MEDS ORDERED: ARIPiprazole 5 MG TAB PO SCH (09:00)
[2021-01-09] MEDS: LITHIUM CARBONATE 150 MG CAP PO SCH (09:08)
--- NOTE | 2021-01-09 11:09 | P.PN ---
Progress Note - Text Progress Note Date: 01/09/21 Interval History: Patient was seen resting in bed and was directable and agreeable to speak with bond underwriter in the office. The patient is currently reporting no suicidal or homicidal ideation, intention, and/or plan. He currently is not reporting any auditory or visual hallucinations. He denies any paranoia or other delusions. Patient has been adherent with his medications but is not endorsing any significant side effects at this time. The patient expresses strong desire to not be on the injectable medication despite recommendations from [facility]. As per discussion with the [facility] team, the patient has been exhibiting bizarre and paranoid behaviors at home despite presenting well in the hospital. When discussing why he did not show up to court, the patient maintains that he just felt like he was not appropriately dressed despite knowing the gravity of the situation. The patient does acknowledge that he is under court order and that if the Abilify maintena was to be pursued, he will receive it. Mental Status Exam: General Appearance: Patient appears to be stated age is alert, directable, and cooperative. Good hygiene and grooming. Balding. Normal build. Behavior: Patient is calmly seated without any agitated behavior. Psychomotor activity is normal. Eye contact is appropriate. Speech: Patient's speech is fluent and nonpressured. Mood/Affect: Mood is "okay," affect is congruent and constricted. Suicidality/Homicidality: Patient denies having any suicidal or homicidal ideation intent or plan. Perceptions: Patient denies any visual hallucinations and denies any auditory hallucinations Though content/process: There is no evidence of any delusional thought content and thought process is linear and goal-directed. Memory and concentration: AOX3, grossly intact for the purposes of this session Judgment and insight: Poor Vital Signs Temp 98.5 F 01/08/21 02:59 Pulse 83 01/08/21 02:59 Resp 16 01/08/21 02:59 BP 142/87 01/08/21 02:59 Pulse Ox 99 01/08/21 02:59 Laboratory Results - Last 24 Hours 01/08/21 01/08/21 07:32 07:[address] Glu mg/dL 88 Hemoglobin A1c 4.7 Free T4 0.76 L Assessment Schizoaffective disorder, bipolar type Hypothyroidism Plan: -Patient continues to meet criteria for inpatient psychiatric admission for symptom stabilization and safety. Patient is under court order as of 01/07/21. -Medications: We will increase Abilify over the weekend to a final dose of 20 mg daily in preparation to administer Abilify maintena for the patient on tuesday or tuesday. Increase lithium to 600 mg by mouth twice a day with plans to check the patient's lithium level on tuesday or tuesday. continue Synthroid -When necessary Ativan and Haldol for agitation/aggression. -NRT - nicotine patch -SW on board for discharge planning. Encouraged the patient to participate in milieu.
[2021-01-09] MEDS: LITHIUM CARBONATE 300 MG CAP PO SCH (20:18)
[2021-01-10] MEDS: LEVOTHYROXINE 88 MCG TAB PO SCH (06:40)
[2021-01-10] MEDS: LITHIUM CARBONATE 300 MG CAP PO SCH ×2 (08:08→20:46)
[2021-01-10] MEDS ORDERED: ARIPiprazole 5 MG TAB PO SCH (09:00)
--- NOTE | 2021-01-10 23:15 | P.PN ---
Progress Note - Text Progress Note Date: 01/10/21 Subjective: Patient was seen today as a cross coverage for Dr. Raines. The patient was evaluated, chart reviewed, case discussed with the treatment team. Patient reports fair sleep last night, and appetite was reported as " normal". Patient has been going to selected groups and other unit activities. The patient is compliant with his medications and denies any adverse reactions. Patient reports his mood is much better and he denies any depression, anxiety, or mood symptoms. Denies any hallucinations, paranoid ideation, or delusions. No manic symptoms reported or noticed. Patient was generally slow and delayed in his response. Objective: Vitals has been reviewed. Mental status examination; Appearance: The patient appears stated age, adequately groomed and dressed, no specific features. Gait/posture: Normal gait, Normal arm swinging: No abnormal movements. Attitude and behavior: engaged, cooperative, eye contact. Motor activity: Decreased psychomotor activity Speech: Normal rate, tone. Mood: " Fine" Affect: Constricted Thought form: goal-directed, linear, coherent. Thought content: Non-delusional, denies suicidal thoughts, denies homicidal thoughts, denies intentions or plans. Perception: Denies any auditory or visual hallucinations Attention: No impairment. Orientation: Patient patient was fully oriented to time place person and situation. Insight: Patient has fair insight about his psychiatric disorder. Judgment: Patient has fair judgment about his psychiatric treatment. Assessment: Schizoaffective disorder, bipolar type Plan: Continue inpatient level of care due to need for further monitoring and stabi lization. Precautions: Continue 15 minutes check for safety. Consider medical consultation if any acute medical issues arise. Provide the patient individual, group therapy, substance use disorder counseling to give better insight and learn coping skills. Medications: Continue Abilify for mood stabilization and psychotic symptoms, lithium for mood stabilization. Continue nicotine replacement therapy. Continue as needed medications for psychiatric emergencies including psychosis, agitation and anxiety including Haldol and Ativan respectively. Continue non-psychiatric medications for medical conditions as recommended by the medical team. Discharge patient to OUTPATIENT services upon a stabilization
[2021-01-11] MEDS: LEVOTHYROXINE 88 MCG TAB PO SCH (06:25)
[2021-01-11] MEDS: LITHIUM CARBONATE 300 MG CAP PO SCH ×2 (08:46→21:05)
[2021-01-11] MEDS ORDERED: diphenhydrAMINE 25 MG CAP PO PRN (13:08)
--- NOTE | 2021-01-11 23:33 | P.PN ---
Progress Note - Text Progress Note Date: 01/11/21 Subjective: Patient was seen today as a cross coverage for Dr. Raines. The patient was evaluated, chart reviewed, case discussed with the treatment team. Patient reports interrupted sleep last night but denies any appetite problems. He continued to go to some groups today and he takes his medications with no side effects reported. Denies depression, anxiety, or mood instability symptoms. Denies any suicidal or homicidal ideation. Denies any hallucinations, paranoid ideation, delusions, or manic symptoms. Reports feeling homesick and would like to be discharged tomorrow. Patient was educated to discuss discharge plan with the primary team. Objective: Vitals has been reviewed. Mental status examination; Appearance: The patient appears stated age, adequately groomed and dressed, no specific features. Gait/posture: Normal gait, Normal arm swinging: No abnormal movements. Attitude and behavior: engaged, cooperative, fair eye contact. Motor activity: Decreased psychomotor activity Speech: Normal rate, tone. Mood: " Fine" Affect: Constricted Thought form: goal-directed, linear, coherent. Thought content: Non-delusional, denies suicidal thoughts, denies homicidal thoughts, denies intentions or plans. Perception: Denies any auditory or visual hallucinations Attention: No impairment. Orientation: Patient patient was fully oriented to time place person and situation. Insight: Patient has fair insight about his psychiatric disorder. Judgment: Patient has fair judgment about his psychiatric treatment. Assessment: Schizoaffective disorder, bipolar type Plan: Continue inpatient level of care due to need for further monitoring and stabilization. Precautions: Continue 15 minutes check for safety. Consider medical consultation if any acute medical issues arise. Provide the patient individual, group therapy, substance use disorder counseling to give better insight and learn coping skills. Medications: Continue Abilify for mood stabilization and psychotic symptoms, lithium for mood stabilization. Continue nicotine replacement therapy. Continue as needed medications for psychiatric emergencies including psychosis, agitation and anxiety including Haldol and Ativan respectively. Start Benadryl 25 mg at bedtime when necessary for insomnia. Continue non-psychiatric medications for medical conditions as recommended by the medical team. Lab: Elsa level ordered tomorrow. Discharge patient to OUTPATIENT services upon a stabilization
[2021-01-12] MEDS: LEVOTHYROXINE 88 MCG TAB PO SCH (06:31)
[2021-01-12 07:10] VITALS: BP 125/76; PULSE 67; RESP 14; TEMP 96.5
[2021-01-12] MEDS: LITHIUM CARBONATE 300 MG CAP PO SCH ×2 (08:09→20:50)
[2021-01-12] MEDS ORDERED: ARIPiprazole IM SYRINGE 400 MG (NO CHARGE) PHARMACY STOCK IM ONE (11:00)
--- NOTE | 2021-01-12 11:24 | P.PN ---
Progress Note - Text Progress Note Date: 01/12/21 Interval History: Patient was seen resting in bed and was directable and agreeable to speak with food writer in the office. The patient is currently reporting is feeling well. He is currently not reporting any suicidal or homicidal ideation, denying auditory or visual hallucinations. Paranoia has been adherent with his medications and is not endorsing any significant side effects at this time. The patient is continuing to request that he is not placed on the long-acting injectable Abilify maintena but is agreeable because he is under court order. He is otherwise calm and cooperative and is denying any issues regarding his sleep or his appetite. Mental Status Exam: General Appearance: Patient appears to be stated age is alert, directable, and cooperative. Good hygiene and grooming. Balding. Normal build. Behavior: Patient is calmly seated without any agitated behavior. Psychomotor activity is normal. Eye contact is appropriate. Speech: Patient's speech is fluent and nonpressured. Mood/Affect: Mood is "doing alright" affect is congruent and constricted. Suicidality/Homicidality: Patient denies having any suicidal or homicidal ideation intent or plan. Perceptions: Patient denies any visual hallucinations and denies any auditory hallucinations Though content/process: There is no evidence of any delusional thought content and thought process is linear and goal-directed. Memory and concentration: AOX3, grossly intact for the purposes of this session Judgment and insight: Poor Vital Signs Temp 96.5 F L 01/12/21 07:09 Pulse 67 01/12/21 07:09 Resp 14 01/12/21 07:09 BP 125/76 01/12/21 07:09 Pulse Ox 99 01/08/21 02:59 Intake & Output 01/11/21 01/12/21 01/12/21 18:59 06:59 18:59 Weight 91.9 kg Laboratory Results - Last 24 Hours 01/12/21 07:31 Ault 0.8 Assessment Schizoaffective disorder, bipolar type Hypothyroidism Plan: -Patient continues to meet criteria for inpatient psychiatric admission for symptom stabilization and safety. Patient is under court order as of 01/07/21. -Medications: Continue Abilify 20 mg by mouth daily for mood stabilization/psychosis. Abilify maintain a 400 mg IM will be administered today. Continue lithium 600 mg by mouth twice a day for mood stabilization. lithium level 0.8. continue Synthroid -When necessary Ativan and Haldol for agitation/aggression. -NRT - nicotine patch -SW on board for discharge planning. Encouraged the patient to participate in milieu.
[2021-01-13] MEDS: LEVOTHYROXINE 88 MCG TAB PO SCH (06:56)
[2021-01-13] MEDS: LITHIUM CARBONATE 300 MG CAP PO SCH (08:05)
--- NOTE | 2021-01-13 12:40 | P.DS ---
Providers Date of admission: 01/08/21 01:20 Expected date of discharge: 01/13/21 Attending physician: Edgar Raines MD Consults: 01/08/21 01:59 Consult Physician Routine Consulting Provider: Vivien Serrano Consult Reason/Comments: h&p Do you want consulting provider notified?: Yes Primary care physician: Stated None - Discharge Diagnosis(es) (1) Schizoaffective disorder, bipolar type Current Visit: Yes Status: Acute Priority: High Hospital Course: Admission HPI: Patient is a single, unemployed, 35 male who was brought in under court nut picker order for nonadherence with treatment. Patient presented to the hospital on 01/07/2021, brought in by police under court order as patient was noncompliant with his current treatment order. Per crisis alert from Dr Redmond at [facility], the recommendation is inpatient psychiatric treatment and administration of abilify maintena. As per crisis alert, the patient reportedly barricaded himself in his room and has been displaying significant symptoms of paranoia. Patient vehemently denies that this is the case. He does report that he has been having difficulty with selling his house and became quite anxious and frantic and that is why he canceled his appointments with [facility]. He believes he only missed one appointment and is unsure why he was brought to the hospital under court order because of this. The patient maintains that he has been adherent with his prescribed medications of Seroquel, Abilify, and lithium. In regards to mood symptoms, the patient is not reporting any suicidal or homicidal ideation, intention, and/or plan. He is not reporting any auditory or visual hallucinations. He is denying any paranoia or delusions at this time. The patient is not reporting any significant symptoms depression. He states that he has been sleeping well, eating well, and has been able to address his hygiene and ADLs. When inquiring about him barricading himself in his room, the patient does not recall doing such thing. The patient was scheduled for mental health court yesterday morning, but did not attend. He states he did not go because he felt like he would "make things worse." He reports he "did not have nice pants." He believed he would not present himself in the way he want to. On reflection with the patient about the reasons for his prior inpatient psychiatric admission, the patient does admit that he could've handled things differently with his neighbors. He understands that he should not have been confrontational with them or damaged his own property. Patient was most recently admitted onto the psychiatric unit from 10/21/20 - 10/28/20. The patient has a working diagnosis of schizoaffective disorder, bipolar type. Patient was last discharged on a regimen of Abilify, Seroquel, and lithium. These medications were continued by [facility]. He has also been previously prescribed Lexapro in the past for depression. The patient has had 3 prior inpatient psychiatric admissions in total. He denies any prior attempts at suicide. Hospital course: Patient presented to the unit under a pickup order. The patient presented as calm and cooperative on initial examination. He did not display any significant symptoms of psychosis and was agreeable to continue treatment. Patient is now under court order. The patient was restarted on his home medications of Abilify and lithium. [place] was gradually titrated to a final dose of 600 mg by mouth twice a day with a lithium level of 0.8. Initially, the patient was hesitant to receive the Abilify maintena [place] after significant discussion with the patient and informing him that he is court ordered for medications, the patient was agreeable to take the injectable. The patient was also examined by the medical team for history and physical examination. The patient attended groups and was calm and cooperative with staff and peers. On the day of discharge, the patient not reporting any suicidal or homicidal ideation, intention, and/or plan. He is not reporting any auditory or visual hallucinations. Is denying any paranoia or delusions. The patient has been adherent with his medications and is reporting mild restlessness from the Abilify but is otherwise tolerating the medications well. He states that he'll follow-up with his outpatient psychiatrist regarding the side effects. Continues to worsen or be present. The patient is denying any issues regarding his sleep or his appetite. He reports no access to firearms or other weapons. Prior to discharge, planning meeting will be arranged by social studies department chair to answer any questions or safety. Patient does not have any significant history of substance abuse however was counseled on abstaining from all substances including alcohol and marijuana. Mental status exam: General Appearance: Patient appears to be stated age is alert, pleasant, and cooperative. Patient is in no acute distress and has fair hygiene and grooming. Behavior: Patient is calmly seated without any agitated behavior. Eye contact is appropriate. Speech: Patient's speech is fluent and nonpressured. Mood/Affect: Patient reports their mood is "feeling okay", affect is congruent and euthymic but slightly constricted. Suicidality/Homicidality: Patient denies having any suicidal or homicidal ideation intent or plan. Perceptions: Patient denies any auditory or visual hallucinations. Though content/process: There is no evidence of any delusional thought content and thought process is linear and goal-directed. Memory and concentration: AOX3, grossly intact for the purposes of this session. Can spell "WORLD" backwards correctly. Judgment and insight: Improved with guarded prognosis Vital Signs Temp 96.5 F L 01/12/21 07:09 Pulse 67 01/12/21 07:09 Resp 14 01/12/21 07:09 BP 125/76 01/12/21 07:09 Pulse Ox 99 01/08/21 02:59 Impression: Schizophrenia disorder, bipolar type Plan: -Continue with discharge today as patient has improved and stabilized psychiatrically and is not currently an imminent threat to himself and/or others. Patient will remain at chronically elevated risk for harm to self and/or others due to his history of nonadherence to treatment. -Continue medications: Continue Abilify 20 mg by mouth daily for stabilization/psychosis for 14 days. Continue lithium 600 mg by mouth twice a day for mood stabilization Abilify maintaining 400 mg IM was administered on 01/12/2021. Next dose due on 02/09/2021. -Patient was counseled on the need for medication compliance and appropriate follow-up at mental health and also primary care for medical issues. Patient verbalized understanding and agreed. -Social work to arrange for and conduct family meeting to ensure safety upon discharge and answer any questions/concerns. Social work also to arrange for patients follow up appointments with [facility] for psychiatric care along with follow up with primary care provider. -Patient counseled on abstaining from recreational drugs and marijuana and alcohol. Was informed/educated on the adverse effects on their physical and mental health. Patient verbally agreed and understood. -Patient was instructed to return to the hospital or seek immediate medical care if their psychiatric or medical symptoms do worsen or reoccur. -Psychoeducation and supportive therapy provided to patient. Risks and benefits of pharmacological treatment versus the risks and benefits of nontreatment weight and discussed. Informed consent discussion held. Common side effects of psychotropics discussed such as, but not limited to headache, GI disturbance, sexual dysfunction, movement disorders, sedation, and orthostatic hypotension. Life threatening and blackbox warnings of prescribed medications also discussed. Potential risks of operating a vehicle or heavy machinery discussed with ramiro ent at length. Advised on importance of compliance and a reliable and responsible manner. Patient advised to review FDA consumer labeling of all medications prior to taking. Patient verbalized understanding of potential risks, and agrees with current treatment plan. Patient advised to medically contact physician/emergency personnel if any acute changes in condition occur. Laboratory Results WBC 9.4 k/uL (3.8-10.6) 01/08/21 07:32 RBC 4.92 m/uL (4.30-5.90) 01/08/21 07:32 Hgb 16.5 gm/dL (13.0-17.5) 01/08/21 07:32 Hct 48.7 % (39.0-53.0) 01/08/21 07:32 MCV 98.8 fL (80.0-100.0) 01/08/21 07:32 MCH 33.5 pg (25.0-35.0) 01/08/21 07:32 MCHC 33.9 g/dL (31.0-37.0) 01/08/21 07:32 RDW 11.7 % (11.5-15.5) 01/08/21 07:32 Plt Count 268 k/uL (150-450) 01/08/21 07:32 MPV 8.0 01/08/21 07:32 Neutrophils % 65 % 01/08/21 07:32 Lymphocytes % 24 % 01/08/21 07:32 Monocytes % 8 % 01/08/21 07:32 Eosinophils % 1 % 01/08/21 07:32 Basophils % 1 % 01/08/21 07:32 Neutrophils # 6.1 k/uL (1.3-7.7) 01/08/21 07:32 Lymphocytes # 2.2 k/uL (1.0-4.8) 01/08/21 07:32 Monocytes # 0.7 k/uL (0-1.0) 01/08/21 07:32 Eosinophils # 0.1 k/uL (0-0.7) 01/08/21 07:32 Basophils # 0.1 k/uL (0-0.2) 01/08/21 07:32 Sodium 137 mmol/L (137-145) 01/08/21 07:32 Potassium 4.5 mmol/L (3.5-5.1) 01/08/21 07:32 Chloride 104 mmol/L (98-107) 01/08/21 07:32 Carbon Dioxide 26 mmol/L (22-30) 01/08/21 07:32 Anion Gap 7 mmol/L 01/08/21 07:32 BUN 11 mg/dL (9-20) 01/08/21 07:32 Creatinine 0.95 mg/dL (0.66-1.25) 01/08/21 07:32 Est GFR (CKD-EPI)AfAm >90 (>60 ml/min/1.73 sqM) 01/08/21 07:32 Est GFR (CKD-EPI)NonAf >90 (>60 ml/min/1.73 sqM) 01/08/21 07:32 Glucose 86 mg/dL (74-99) 01/08/21 07:[address] Glu mg/dL 88 01/08/21 07:32 Hemoglobin A1c 4.7 % (4.0-6.0) 01/08/21 07:32 Calcium 9.6 mg/dL (8.4-10.2) 01/08/21 07:32 Total Bilirubin 0.4 mg/dL (0.2-1.3) 01/08/21 07:32 AST 85 U/L (17-59) H 01/08/21 07:32 ALT 225 U/L (4-49) H 01/08/21 07:32 Alkaline Phosphatase 113 U/L (38-126) 01/08/21 07:32 Total Protein 6.7 g/dL (6.3-8.2) 01/08/21 07:32 Albumin 4.2 g/dL (3.5-5.0) 01/08/21 07:32 TSH 11.800 mIU/L (0.465-4.680) H 01/08/21 07:32 Free T4 0.76 ng/dL (0.78-2.19) L 01/08/21 07:32 [place] 0.8 mmol/L 01/12/21 07:31 Allergies Allergy/AdvReac Type Severity Reaction Status Date / Time No Known Allergies Allergy Verified 01/07/21 21:43 Patient Condition at Discharge: Stable Plan - Discharge Summary Discharge Rx Participant: No New Discharge Prescriptions: New Levothyroxine Sodium [Synthroid] 88 mcg PO DAILY@0630 30 Days tab ARIPiprazole [Abilify] 20 mg PO DAILY 14 Days tab [place] Carbonate 600 mg PO BID 30 Days cap ARIPiprazole IM [Abilify Maintena] 400 mg IM QMONTHLY #1 each Discontinued QUEtiapine [SEROquel] 50 mg PO HS #30 tab ARIPiprazole [Abilify] 5 mg PO HS Sennosides/Docusate Sodium [Colace 2-in-1 Tablet] 1 tab PO BID PRN PRN Reason: Constipation [place] Carbonate 900 mg PO HS Discharge Medication List ARIPiprazole IM [Abilify Maintena] 400 mg IM QMONTHLY #1 each 01/13/21 [Rx] ARIPiprazole [Abilify] 20 mg PO DAILY 14 Days tab 01/13/21 [Rx] Levothyroxine Sodium [Synthroid] 88 mcg PO DAILY@0630 30 Days tab 01/13/21 [Rx] [place] Carbonate 600 mg PO BID 30 Days cap 01/13/21 [Rx] Follow up Appointment(s)/Referral(s): [facility] [Outside] - 01/13/21 4:00 pm (Is[facility] @ 4pm ) [facility] [NON-STAFF] - 1 Week Patient Instructions/Handouts: Schizoaffective Disorder (DC) Activity/Diet/Wound Care/Special Instructions: Activity and diet as tolerated. Avoid the use of street drugs and alcohol. Take all medications as prescribed. When you are in need of refills on your medications please contact your medical provider and/or outpatient psychiatrist to have this done. Please go to scheduled outpatient appointment for aftercare treatment. If symptoms return or become worse, call the crisis line at and/or go to the nearest emergency room for evaluation. Discharge Disposition: HOME SELF-CARE
== END 2021-01-13 12:55 | disposition home or self-care (01) | DRG 885 ==
LOC: EC 19:56 → 3MHU 01-08 01:20
PROVIDERS: ADMIT Psychiatry & Neurology Psychiatry; ATTEND Psychiatry & Neurology Psychiatry
DX: F25.0 Schizoaffective disorder, bipolar type (principal); R45.851 Suicidal ideations; E03.9 Hypothyroidism, unspecified; F41.9 Anxiety disorder, unspecified; Z79.899 Other long term (current) drug therapy; Z91.19 Patient's noncompliance with other medical treatment and regimen; Z79.890 Hormone replacement therapy
CPT/HCPCS: 80053; 80178; 82075; 83036; 84439; 84443; 85025

== ENCOUNTER 2021-01-15 20:59 | Emergency (ER) | payer OTHER ==
[2021-01-15 21:08] VITALS: BP 176/103; PULSE 93; RESP 17; TEMP 98.5
--- NOTE | 2021-01-15 21:43 | ED ---
Recheck HPI - General Chief Complaint: Recheck/Abnormal Lab/Rx Stated Complaint: Medication mix-up Time Seen by Provider: 01/15/21 21:12 Source: patient, RN notes reviewed, old records reviewed Mode of arrival: ambulatory Limitations: no limitations - History of Present Illness Initial Comments: This is a 35-year-old male to the ER for evaluation patient presents today for evaluation regards to medication mixup. Did take his normal lithium tonight. Patient was actually given Clozapine and Cogentin as a medication mixup. Patient is a symptomatic. This occurred about an hour to 2 hours prior to arrival. This time patient has no complaints. No recent travel history or sick contacts. Patient is concerned or taking the medications and wanted to be evaluated. MD Complaint: other (Took wrong medication) -: hour(s) Returns Today for: other (Patient has no symptoms) Symptoms Since Prior Visit: no new symptoms Associated Symptoms: none Treatments Prior to Arrival: other (none) - Related Data Previous Rx's Medication Instructions Recorded ARIPiprazole IM [Abilify Maintena] 400 mg IM QMONTHLY #1 each 01/13/21 ARIPiprazole [Abilify] 20 mg PO DAILY 14 Days tab 01/13/21 Levothyroxine Sodium [Synthroid] 88 mcg PO DAILY@0630 30 Days tab 01/13/21 [place] Carbonate 600 mg PO BID 30 Days cap 01/13/21 Allergies Allergy/AdvReac Type Severity Reaction Status Date / Time No Known Allergies Allergy Verified 01/15/21 21:07 Review of Systems ROS Statement: Those systems with pertinent positive or pertinent negative responses have been documented in the HPI. ROS Other: All systems not noted in ROS Statement are negative. Past Medical History Past Medical History: Thyroid Disorder Additional Past Medical History / Comment(s): Hypothyroidism History of Any Multi-Drug Resistant Organisms: None Reported Past Surgical History: No Surgical Hx Reported Past Psychological History: Anxiety, Bipolar, Depression Smoking Status: Never smoker Past Alcohol Use History: None Reported Past Drug Use History: None Reported - Past Family History Father Family Medical History: Congestive Heart Failure (CHF) Additional Family Medical History / Comment(s): Father at age 60 from heart failure. Mother Additional Family Medical History / Comment(s): Mother is healthy at age 60. Sister(s) Additional Family Medical History / Comment(s): He has one sister that is healthy. Brother(s) Additional Family Medical History / Comment(s): Patient has 1 brother that at age 25 from complications of alcoholism General Exam Limitations: no limitations General appearance: alert, in no apparent distress Head exam: Present: atraumatic, normocephalic, normal inspection Eye exam: Present: normal appearance, PERRL, EOMI. Absent: scleral icterus, conjunctival injection, periorbital swelling ENT exam: Present: normal exam, mucous membranes moist Neck exam: Present: normal inspection. Absent: tenderness, meningismus, lymphadenopathy Respiratory exam: Present: normal lung sounds bilaterally. Absent: respiratory distress, wheezes, rales, rhonchi, stridor Cardiovascular Exam: Present: regular rate, normal rhythm, normal heart sounds. Absent: systolic murmur, diastolic murmur, rubs, gallop, clicks GI/Abdominal exam: Present: soft, normal bowel sounds. Absent: distended, tenderness, guarding, rebound, rigid Extremities exam: Present: normal inspection, full ROM, normal capillary refill. Absent: tenderness, pedal edema, joint swelling, calf tenderness Back exam: Present: normal inspection Neurological exam: Present: alert, oriented X3, CN II-XII intact Psychiatric exam: Present: normal affect, normal mood Skin exam: Present: warm, dry, intact, normal color. Absent: rash Course Vital Signs 01/15/21 21:04 Temperature 98.5 F Pulse Rate 93 Respiratory 17 Rate Blood Pressure 176/103 O2 Sat by Pulse 98 Oximetry - Reevaluation(s) Reevaluation #1: 01/15/21 21:42 Medical record is reviewed Reevaluation #2: 01/15/21 21:42 Patient remains a symptomatic throughout ER stay Reevaluation #3: 01/15/21 21:42 Spoke with patient at length, patient is reassured Medical Decision Making - Medical Decision Making 35 male DF for evaluation. Patient took medication mixup tonight at the [facility]. There are no significant serious interactions between his medications and the accidental medications that he took. Patient can be discharged home Disposition Clinical Impression: Medication error Disposition: HOME SELF-CARE Condition: Good Instructions (If sedation given, give patient instructions): Normal Exam (ED) Is patient prescribed a controlled substance at d/c from ED?: No Referrals: None,Stated [Primary Care Provider] - 1-2 days
== END 2021-01-15 21:49 | disposition home or self-care (01) ==
LOC: EC 20:59
DX: T42.4X1A Poisoning by benzodiazepines, accidental (unintentional), initial encounter (principal); E03.9 Hypothyroidism, unspecified; F31.9 Bipolar disorder, unspecified; F41.9 Anxiety disorder, unspecified; Z79.890 Hormone replacement therapy; Z79.899 Other long term (current) drug therapy; Z82.49 Family history of ischemic heart disease and other diseases of the circulatory system
CPT/HCPCS: 99283

== ENCOUNTER → 2021-02-13 | Outpatient (CLI) | payer OTHER ==
[2021-02-13 22:57] LABS: T4, Free (Free Thyroxine) 1.1 ng/dL (0.80-1.80)
[2021-02-13 23:44] LABS: African American GFR (CKD) 89.6 (60.0-200.0); Lithium 0.8 mmol/L (0.5-1.2); Non-African American GFR(CKD) 77.3 (60.0-200.0)
== END | disposition home or self-care (01) ==
LOC: LABWHC1 09:00
PROVIDERS: ATTEND Psychiatry & Neurology Psychiatry
DX: Z79.899 Other long term (current) drug therapy (principal)
CPT/HCPCS: 36415; 80178; 82565; 84439; 84443; 84520

== ENCOUNTER 2021-02-20 18:10 | Inpatient (IN) | payer MEDICAID, OTHER ==
--- NOTE | 2021-02-20 19:00 | ED ---
Psych HPI - General Chief Complaint: Psychiatric Symptoms Stated Complaint: EPS eval Time Seen by Provider: 02/20/21 18:25 Source: patient, RN notes reviewed Mode of arrival: ambulatory - History of Present Illness Initial Comments: 35-year-old male history depression and is here for evaluation he states he is feeling depressed and suicidal he is having thoughts of hanging himself. He states he moved into a residential well-developed ago this is a stressor that starting everything. MD Complaint: suicidal ideation, feels depressed - Related Data Home Medications Medication Instructions Recorded Confirmed ARIPiprazole IM [Abilify Maintena] 400 mg IM Q30D 02/20/21 02/20/21 Levothyroxine Sodium [Synthroid] 88 mcg PO DAILY@0800 02/20/21 02/20/21 [place] Carbonate 1,200 mg PO HS 02/20/21 02/20/21 Allergies Allergy/AdvReac Type Severity Reaction Status Date / Time No Known Allergies Allergy Verified 02/20/21 20:17 Review of Systems ROS Statement: Those systems with pertinent positive or pertinent negative responses have been documented in the HPI. ROS Other: All systems not noted in ROS Statement are negative. Past Medical History Past Medical History: Thyroid Disorder Additional Past Medical History / Comment(s): Hypothyroidism History of Any Multi-Drug Resistant Organisms: None Reported Past Surgical History: No Surgical Hx Reported Past Psychological History: Anxiety, Bipolar, Depression Smoking Status: Never smoker Past Alcohol Use History: None Reported Past Drug Use History: None Reported - Past Family History Father Family Medical History: Congestive Heart Failure (CHF) Additional Family Medical History / Comment(s): Father at age 60 from heart failure. Mother Additional Family Medical History / Comment(s): Mother is healthy at age 60. Sister(s) Additional Family Medical History / Comment(s): He has one sister that is healthy. Brother(s) Additional Family Medical History / Comment(s): Patient has 1 brother that at age 25 from complications of alcoholism General Exam - General Exam Comments Initial Comments: Well-developed well-nourished awake alert oriented times 3 male Limitations: no limitations General appearance: alert, in no apparent distress Head exam: Present: atraumatic, normocephalic, normal inspection Eye exam: Present: normal appearance, PERRL, EOMI. Absent: scleral icterus, conjunctival injection, periorbital swelling ENT exam: Present: normal exam, mucous membranes moist Neck exam: Present: normal inspection. Absent: tenderness, meningismus, lymphadenopathy Respiratory exam: Present: normal lung sounds bilaterally. Absent: respiratory distress, wheezes, rales, rhonchi, stridor Cardiovascular Exam: Present: regular rate, normal rhythm, normal heart sounds. Absent: systolic murmur, diastolic murmur, rubs, gallop, clicks GI/Abdominal exam: Present: soft, normal bowel sounds. Absent: distended, tenderness, guarding, rebound, rigid Extremities exam: Present: normal inspection, full ROM, normal capillary refill. Absent: tenderness, pedal edema, joint swelling, calf tenderness Back exam: Present: normal inspection Neurological exam: Present: alert, oriented X3, CN II-XII intact Psychiatric exam: Present: depressed, flat affect, suicidal ideation Skin exam: Present: warm, dry, intact, normal color. Absent: rash Course Vital Signs 02/20/21 18:13 Temperature 98.9 F Pulse Rate 111 H Respiratory 18 Rate Blood Pressure 160/103 O2 Sat by Pulse 94 L Oximetry Medical Decision Making - Medical Decision Making The patient was evaluated by the EPS service he will be admitted for evaluation and treatment of depression and suicidal ideation - Lab Data Lab Results 02/20/21 02/20/21 Range/Units 18:54 19:44 Urine Opiates Screen Not Detected (NotDetected) Ur Oxycodone Screen Not Detected (NotDetected) Urine Methadone Screen Not Detected (NotDetected) Ur Propoxyphene Screen Not Detected (NotDetected) Ur Barbiturates Screen Not Detected (NotDetected) U Tricyclic Antidepress Not Detected (NotDetected) Ur Phencyclidine Scrn Not Detected (NotDetected) Ur Amphetamines Screen Not Detected (NotDetected) U Methamphetamines Scrn Not Detected (NotDetected) U Benzodiazepines Scrn Not Detected (NotDetected) Urine Cocaine Screen Not Detected (NotDetected) U Marijuana (THC) Screen Not Detected (NotDetected) Coronavirus (PCR) Not Detected (Not Detectd) Disposition Clinical Impression: Suicidal ideation, Depression Disposition: TRANSFER TO PSYCH HOSP/UNIT Condition: Fair Referrals: None,Stated [Primary Care Provider] - 1-2 days
[2021-02-20 19:23] LABS: Amphetamine Screen,Urine Not Detected (NotDetected); Barbiturate Screen,Urine Not Detected (NotDetected); Benzodiazepines Screen,Urine Not Detected (NotDetected); Cocaine Screen,Urine Not Detected (NotDetected); Methadone Screen, Urine Not Detected (NotDetected); Opiate Screen,Urine Not Detected (NotDetected); Oxycodone Screen, Urine Not Detected (NotDetected); Phencyclidine Screen,Urine Not Detected (NotDetected); Tricyclic Antidepressant,Urine Not Detected (NotDetected); Urn Cannabinoid Scrn Not Detected (NotDetected)
[2021-02-20] MEDS ORDERED: ACETAMINOPHEN TAB 325 MG TAB PO PRN (21:34)
[2021-02-20] MEDS ORDERED: LORazepam 1 MG TAB PO PRN (21:34)
[2021-02-20] MEDS ORDERED: MAGNESIUM HYDROXIDE 2,400 MG/10 ML CUP PO PRN (21:34)
[2021-02-20] MEDS ORDERED: MAG HYDROX/AL HYDROX/SIMETH 30 ML CUP PO PRN (21:34)
[2021-02-20] MEDS ORDERED: LORazepam 2 MG/ML INJ IM PRN (21:38)
[2021-02-20] MEDS ORDERED: HALOPERIDOL LACTATE 5 MG/ML 1 ML VIAL IM PRN (21:39)
[2021-02-20] MEDS ORDERED: LITHIUM CARBONATE 300 MG CAP PO SCH (22:00)
--- NOTE | 2021-02-21 06:29 | P.PN ---
Progress Note - Text Progress Note Date: 02/21/21 patient sleeping and could not be evaluated at this time
[2021-02-21 07:04] VITALS: TEMP 97.3
[2021-02-21] MEDS: NICOTINE 14MG/24HR PATCH TRANSDERM SCH (08:03)
[2021-02-21] MEDS ORDERED: traZODone HCL 50 MG TAB PO PRN (13:14)
[2021-02-21] MEDS: VENLAFAXINE HCL ER 75 MG CAP PO SCH (13:30)
[2021-02-21 18:30] LABS: Hemoglobin A1C 5.1 % (4.0-6.0)
[2021-02-21 20:08] LABS: Chol/HDL Ratio 5.14; LDL Cholesterol,Calculated 157.8 mg/dL (0.0-131.0); VLDL Calculation 45.2 mg/dL (5.00-40.00)
[2021-02-21] MEDS: LITHIUM CARBONATE 300 MG CAP PO SCH (20:20)
[2021-02-22] MEDS: VENLAFAXINE HCL ER 75 MG CAP PO SCH (08:07)
[2021-02-22] MEDS: NICOTINE 14MG/24HR PATCH TRANSDERM SCH (08:07)
[2021-02-22] MEDS: LITHIUM CARBONATE 300 MG CAP PO SCH ×2 (08:07→21:01)
--- NOTE | 2021-02-22 11:54 | P.HP ---
Psychiatric H&P - . H&P Date: 02/21/21 History & Physical: IDENTIFYING Data: Mr. Neo Hays is a 35-year-old single male who currently lives in a care home, unemployed, has psychiatric history of schizoaffective disorder, and denies any medical history. The patient has been admitted to our inpatient psychiatric services after been transferred from [facility]. Patient was initially self-referred to ED because of depression and suicidal ideation. The patient has been admitted on voluntary basis to our service. CHIEF COMPLAINT: "I need help." HISTORY OF PRESENT ILLNESS: As per ED report "35-year-old male history depression and is here for evaluation he states he is feeling depressed and suicidal he is having thoughts of hanging himself. He states he moved into a care home well-developed ago this is a stressor that starting everything." The patient was recently discharged from this unit last month with a diagnosis of schizophrenia and prescribed medications lithium and Abilify maintaina. Patient is currently following with [facility] for outpatient psychiatric treatment and reports received to his monthly injection few days ago, and he continued to take his medications as prescribed. Patient reports feeling depressed since he went to care home last month and is started to have suicidal ideation for the past 2 weeks. Patient was very flat in his affect was no eye contact. Reports main reason for his depression is that situation at the care home especially his roommate. He reports that he couldn't sleep because his roommate has mental illness and he keeps mumbling all night. Patient denies any change in appetite, but reports symptoms of depressed mood, feeling hopeless, and having suicidal ideation. He reports with thinking about killing himself if he couldn't find another place to live, but didn't address any specific plan. Patient denies any current hallucinations, paranoid ideation, or delusion. He denies any current manic symptoms including elevated mood, grandiosity, absence need to sleep due to unusual increase in energy, or impulsivity/uninhibited behavior. Patient denies any previous symptoms of keith or psychosis. Reports having high anxiety related to living situation in a care home and had a few panic attacks over the last month. He denies any history of psychological trauma or PTSD symptoms including nightmares and flashbacks. He denies any history of self-injurious behavior or previous suicidal attempts. As per previous records, the patient has extensive history of severe paranoia. PAST PSYCHIATRIC HISTORY: Previous diagnoses: Schizoaffective disorder Previous psychiatric hospitalizations: Multiple times with the last hospitalization to this unit was a month ago discharged 01/13/21 with diagnosis of schizoaffective disorder and medications of lithium and Abilify maintaina. Previous suicide attempts: Denies. Previous outpatient psychiatric treatment: Currently following with [facility]. Current psychiatric medications: Reports taking his psych medications including lithium and the last Abilify maintain injection was few days ago. Previous medication trials: Reports history of treatment with antidepressant in the past but couldn't recall any names. SUBSTANCE ABUSE HISTORY:. Denies using any tobacco progress, drinking alcohol, or using any street drugs. Social History: Patient was born in [place] and raised up by his parents. Housing: Currently lives in a care home. Patient never and has no children. He is currently unemployed. Education: Patient reports attaining an educational level of school and some college. History of psychological trauma: Denies any history of psychological trauma FAMILY HISTORY: Denies any family history of mental illness, suicide, or addiction problems Medical History: None reported MENTAL STATUS EVALUATION: Appearance: Appears stated age, disheveled, average body built, and no specific features. Gait/ posture: Steady gait, normal arm swinging, no abnormal movements, with relaxed posture. Attitude and Behavior: Not engaged, not related to the interviewer in socially accepted manner, no eye contact during course of interview. Motor Activity: Decreased psychomotor activity. Speech: spontaneous, slow rate, rhythm, and articulation. soft volume. Not pressured. Language: Articulating, naming objects and repeat phrases. Mood: Depressed Affect: Flat. Thought process: Impoverished. Association: Intact. Thought content: Denies delusions, Reports suicidal thoughts, Denies homicidal thoughts, reports suicidal intention. Perception: Denies any hallucinations Alertness: No impairment. Concentration: Impaired Orientation: Alert, and oriented to time, person, place, and situation. Insight regarding psychiatric condition: Fair Judgment regarding daily activities and social situation: Fair Impulse control: Fair Strengths: Stable general medical condition. Housing. Outpatient psychiatric treatment. Challenges: distress at his current care home Allergies Allergy/AdvReac Type Severity Reaction Status Date / Time No Known Allergies Allergy Verified 02/21/21 10:51 Vital Signs Temp 97.3 F L 02/21/21 06:48 Pulse 80 02/21/21 06:48 Resp 18 02/21/21 06:48 BP 119/69 02/21/21 06:48 Pulse Ox 98 02/20/21 21:40 Intake & Output 02/20/21 02/21/21 02/21/21 18:59 06:59 18:59 Weight 95.254 kg 93.8 kg 93.8 kg Lab results: Laboratory Last Values Urine Opiates Screen Not Detected (NotDetected) 02/20/21 18:54 Ur Oxycodone Screen Not Detected (NotDetected) 02/20/21 18:54 Urine Methadone Screen Not Detected (NotDetected) 02/20/21 18:54 Ur Propoxyphene Screen Not Detected (NotDetected) 02/20/21 18:54 Ur Barbiturates Screen Not Detected (NotDetected) 02/20/21 18:54 U Tricyclic Antidepress Not Detected (NotDetected) 02/20/21 18:54 Ur Phencyclidine Scrn Not Detected (NotDetected) 02/20/21 18:54 Ur Amphetamines Screen Not Detected (NotDetected) 02/20/21 18:54 U Methamphetamines Scrn Not Detected (NotDetected) 02/20/21 18:54 U Benzodiazepines Scrn Not Detected (NotDetected) 02/20/21 18:54 Urine Cocaine Screen Not Detected (NotDetected) 02/20/21 18:54 U Marijuana (THC) Screen Not Detected (NotDetected) 02/20/21 18:54 Coronavirus (PCR) Not Detected (Not Detectd) 02/20/21 19:44 Assessment: Schizoaffective disorder bipolar type by history. TREATMENT PLAN/RECOMMENDATIONS: Medical Decision making: The patient presented with severe depression and suicidal ideation. The patient at high risk to hurt himself if he is not in the inpatient setting. The patient's psychiatric symptoms are not stable and he needs further management of psychiatric medications and further planning for discharge. Therefore, inpatient level of care is needed. Continue the patient inpatient for safety. Continue the patient under 15 minutes safe check for safety. Continue treatment of depression, mood instability, and his psychotic symptoms. Psych education regarding his diagnosis, and treatment option. The patient will also be provided with individual therapy, group therapy, substance abuse counseling, gain insight, and coping skills. Consider medical consultation if any acute medical issue arise. Medications: Continue lithium 600 mg twice daily for mood stabilization. Continue Abilify maintain a 400 mg IM every 4 weeks-obtain information from [facility] about last dose. Start Effexor XR 75 mg daily for depression symptoms. Started trazodone 50 mg at bedtime as needed for insomnia. Continue when necessary psychiatric medication for agitation and anxiety. Continue non-psychiatric medications if needed as per the medical team. Labs: Obtain lithium level. Prognosis is guarded, contingent on patient has been compliant with his medications and has been followed up closely with outpatient mental health provider after discharge. The patient will be assessed on daily basis, and will be discharged back to his outpatient mental health provider upon stabilization. EXPECTED LENGTH OF STAY: 7 days. 02/21/21 12:53
--- NOTE | 2021-02-22 23:53 | P.PN ---
Progress Note - Text Progress Note Date: 02/22/21 Subjective: Patient was seen today as a cross coverage for Dr. Tello. The patient was evaluated, chart reviewed, case discussed with the treatment team. Patient reports better sleep last night, and appetite was reported as " fair ". Patient has not been going to groups and other unit activities. The patient is compliant with his medications and denies any adverse reactions. Patient reports had better sleep last night even without taking trazodone because he is away from the shelter. He reports fair appetite but he has constipation for afternoon. Reports his mood is better and minimizes depression symptoms today because he is not in the shelter. He denies any suicidal thoughts today. Denies any hallucinations, paranoid ideation, delusions, or manic symptoms. Patient was isolating himself in his room for most of the time and has minimal interaction with peers Objective: Vitals has been reviewed. Mental status examination; Appearance: Appears stated age, disheveled, average body built, and no specific features. Gait/ posture: Steady gait, normal arm swinging, no abnormal movements, with relaxed posture. Attitude and Behavior: Not engaged, not related to the interviewer in socially accepted manner, no eye contact during course of interview. Motor Activity: Decreased psychomotor activity. Speech: spontaneous, slow rate, rhythm, and articulation. soft volume. Not pressured. Language: Articulating, naming objects and repeat phrases. Mood: Depressed Affect: Flat. Thought process: Poverty of thoughts Association: Intact. Thought content: Denies delusions, denies suicidal thoughts, Denies homicidal thoughts, reports suicidal intention. Perception: Denies any hallucinations Alertness: No impairment. Concentration: Impaired Orientation: Alert, and oriented to time, person, place, and situation. Insight regarding psychiatric condition: Fair Judgment regarding daily activities and social situation: Fair Impulse control: Fair Assessment: Schizoaffective disorder bipolar type by history. Plan: Continue inpatient level of care for further monitoring and stabilization. Patient still meets criteria for inpatient psychiatric hospitalization Precautions: Continue 15 minutes check for safety. Consider medical consultation if any acute medical issues arise. Provide the patient individual, group therapy, substance use disorder counseling to give better insight and learn coping skills. Medications: Continue lithium 600 mg twice daily for mood stabilization. Continue Abilify maintain a 400 mg IM every 4 weeks-obtain information from [facility] about last dose. Continue Effexor XR 75 mg daily for depression symptoms. Continue trazodone 50 mg at bedtime as needed for insomnia. Continue when necessary psychiatric medication for agitation and anxiety. Continue non-psychiatric medications if needed as per the medical team. Discharge patient to OUTPATIENT services upon a stabilization
[2021-02-23 07:07] VITALS: BP 131/79; PULSE 69; RESP 18
[2021-02-23] MEDS: NICOTINE 14MG/24HR PATCH TRANSDERM SCH (08:34)
[2021-02-23] MEDS: LITHIUM CARBONATE 300 MG CAP PO SCH ×2 (08:34→20:41)
[2021-02-23] MEDS: VENLAFAXINE HCL ER 75 MG CAP PO SCH (08:34)
--- NOTE | 2021-02-23 11:38 | P.PN ---
Progress Note - Text Progress Note Date: 02/23/21 Interval History: Patient was seen wandering the hallways and was directable and agreeable to speak with program writer in the office. Patient reports that he is feeling better. He states that his biggest stressor is his current housing situation. The patient states that he has been staying at [facility]. He expresses that he felt overwhelmed with his housing situation because his peers at [facility] or unhygienic and constantly causing a mess. He reports that shortly prior to this admission, his roommate vomited on his floor and the smell was unbearable. The patient reports that it was because of this that he felt like he was suicidal. He is currently denying any suicidal or homicidal ideation, intention, and/or plan. He is not reporting any auditory or visual hallucinations. He is denying any paranoia or delusions. The patient states that he has been working with his residential case manager to find a different housing situation and be more therapeutic for him. The patient is requesting that he be discharged soon so that he may be reunited with his belongings. He is denying any auditory or visualizations. He is denying paranoia other delusions. The patient has been adherent to his medications and not endorsing any significant side effects. Mental Status Exam: General Appearance: Patient appears to be stated age is alert, directable, and cooperative. Behavior: Patient is calmly seated without any agitated behavior. Eye contact is appropriate. Speech: Patient's speech is fluent and nonpressured. Monotone, soft spoken, but spontaneous. Mood/Affect: Mood is improving mildly, affect is congruent. Range of affect is blunted. Suicidality/Homicidality: Patient denies having any suicidal or homicidal ideation intent or plan. Perceptions: Patient denies any visual hallucinations and denies any auditory hallucinations Though content/process: There is no evidence of any delusional thought content and thought process is linear and goal-directed. Memory and concentration: AOX3, grossly intact for the purposes of this session Judgment and insight: Improving mildly Vital Signs Temp 97.3 F L 02/23/21 06:50 Pulse 69 02/23/21 06:50 Resp 18 02/23/21 06:50 BP 131/79 02/23/21 06:50 Pulse Ox 98 02/20/21 21:40 Intake & Output 02/22/21 02/23/21 02/23/21 18:59 06:59 18:59 Weight 94.3 kg Assessment Schizoaffective disorder, bipolar type Plan: -Patient continues to meet criteria for inpatient psychiatric admission for symptom stabilization and safety. Patient has signed adult voluntary form and medication consent and was placed in patient's chart. -Medications: Continue lithium 600 mg by mouth twice a day for mood stabilization/psychosis Continue Abilify maintena 400 mg IM q4 weeks. Next dose due on 03/11/2021. Continue Effexor XR 75 mg daily for depression Continue Trazodone 50 mg at bedtime as needed for insomnia -When necessary Ativan and Haldol for agitation/aggression. -SW on board for discharge planning. Encouraged the patient to participate in milieu.
[2021-02-23] MEDS: LEVOTHYROXINE 88 MCG TAB PO SCH (15:38)
--- NOTE | 2021-02-24 00:44 | P.PN ---
Progress Note - Text Progress Note Date: 02/24/21 patient sleeping and could not be evaluated at this time
[2021-02-24] MEDS: LEVOTHYROXINE 88 MCG TAB PO SCH (08:53)
[2021-02-24] MEDS: LITHIUM CARBONATE 300 MG CAP PO SCH (08:53)
[2021-02-24] MEDS: VENLAFAXINE HCL ER 75 MG CAP PO SCH (08:53)
[2021-02-24] MEDS: NICOTINE 14MG/24HR PATCH TRANSDERM SCH (08:54)
--- NOTE | 2021-02-24 11:22 | P.DS ---
Providers Date of admission: 02/20/21 21:29 Expected date of discharge: 02/24/21 Attending physician: Edgar Raines MD Consults: 02/20/21 21:34 Consult Physician Routine Consulting Provider: [facility] [employer] Consult Reason/Comments: medical management Do you want consulting provider notified?: Yes Primary care physician: Stated None - Discharge Diagnosis(es) (1) Schizoaffective disorder, bipolar type Current Visit: Yes Status: Acute Priority: High Hospital Course: Admission HPI: Initial psychiatric evaluation was completed by Dr. Rebollar on 02/21/21 who wrote: "Mr. Neo Hays is a 35-year-old single male who currently lives in a halfway, unemployed, has psychiatric history of schizoaffective disorder, and denies any medical history. The patient has been admitted to our inpatient psychiatric services after been transferred from [facility]. Patient was initially self-referred to ED because of depression and suicidal ideation. The patient has been admitted on voluntary basis to our service. 'I need help.' As per ED report "35-year-old male history depression and is here for evaluation he states he is feeling depressed and suicidal he is having thoughts of hanging himself. He states he moved into a halfway well-developed ago this is a stressor that starting everything." The patient was recently discharged from this unit last month with a diagnosis of schizophrenia and prescribed medications lithium and Abilify maintaina. Patient is currently following with [facility] for outpatient psychiatric treatment and reports received to his monthly injection few days ago, and he continued to take his medications as prescribed. Patient reports feeling depressed since he went to halfway last month and is started to have suicidal ideation for the past 2 weeks. Patient was very flat in his affect was no eye contact. Reports main reason for his depression is that situation at the halfway especially his roommate. He reports that he couldn't sleep because his roommate has mental illness and he keeps mumbling all night. Patient denies any change in appetite, but reports symptoms of depressed mood, feeling hopeless, and having suicidal ideation. He reports with thinking about killing himself if he couldn't find another place to live, but didn't address any specific plan. Patient denies any current hallucinations, paranoid ideation, or delusion. He denies any current manic symptoms including elevated mood, grandiosity, absence need to sleep due to unusual increase in energy, or impulsivity/uninhibited behavior. Patient denies any previous symptoms of keith or psychosis. Reports having high anxiety related to living situation in a halfway and had a few panic attacks over the last month. He denies any history of psychological trauma or PTSD symptoms including nightmares and flashbacks. He denies any history of self-injurious behavior or previous suicidal attempts. As per previous records, the patient has extensive history of severe paranoia." Hospital course: Upon admission to the unit patient was initially noted to be endorsing significant suicidal ideation with thoughts of hanging himself. Patient was however directable and agreeable to commence treatment. Patient got along well with other patients on the unit and followed unit protocol. Patient was compliant with the medications and denied any side effects throughout hospital course. Patient was started on his home medications of lithium and Abilify maintena. Effexor and trazodone were added to his regimen. Patient spoke of his stressors and engaged in therapy both group and individual. Patient was also seen by medical team for history and physical exam. The patient spoke mainly about his stressor of living at a halfway as he has had issues with his peers at the halfway due to their lack of hygienic practices. Throughout the course of the hospitalization patient gradually improved with regards to mood, anxiety, judgment, and insight. On the day of discharge patient denied any stephy cidal or homicidal ideations intent or plan denied any auditory or visual hallucinations. Patient endorsed wanting to live for his health and family. The patient denied any access to guns or weapons. Patient denied any paranoia and did not endorse any delusions. Patient does not have a significant history of substance abuse however was counseled on abstaining from all substances including alcohol and marijuana. Patient was also counseled on the medications and need for regular compliance and was encouraged to follow-up with their outpatient appointment for mental health and also for primary care. Prior to discharge a family meeting will be arranged by social media community manager to answer any questions and ensure safety upon discharge. Mental status exam: General Appearance: Patient appears to be stated age is alert, pleasant, and cooperative. Patient is in no acute distress and has fair hygiene and grooming Behavior: Patient is calmly seated without any agitated behavior. Speech: Patient's speech is fluent and nonpressured. Mood/Affect: Patient reports their mood is "feeling ready to go", affect is congruent and euthymic. Suicidality/Homicidality: Patient denies having any suicidal or homicidal ideation intent or plan. Perceptions: Patient denies any auditory or visual hallucinations. Though content/process: There is no evidence of any delusional thought content and thought process is linear and goal-directed. Memory and concentration: AOX3, grossly intact for the purposes of this session. Can spell "WORLD" backwards correctly. Judgment and insight: Improved Vital Signs Temp 97.3 F L 02/23/21 06:50 Pulse 69 02/23/21 06:50 Resp 18 02/23/21 06:50 BP 131/79 02/23/21 06:50 Pulse Ox 98 02/20/21 21:40 Impression: Schizoaffective disorder, bipolar type Plan: -Continue with discharge today as patient has improved and stabilized psychiatrically and is not currently an imminent threat to himself and/or others. -Continue medications: Effexor XR 75 mg by mouth daily for depression/anxiety [place] 600 mg by mouth twice a day for mood stabilization Abilify maintena 400 mg IM q30 days for psychosis / mood stabilization. -Patient was counseled on the need for medication compliance and appropriate follow-up at mental health and also primary care for medical issues. Patient verbalized understanding and agreed. -Social work to arrange for and conduct family meeting to ensure safety upon discharge and answer any questions/concerns. Social work also to arrange for patients follow up appointments with [facility] for psychiatric care along with follow up with primary care provider. -Patient counseled on abstaining from recreational drugs and marijuana and alcohol. Was informed/educated on the adverse effects on their physical and mental health. Patient verbally agreed and understood. -Patient was instructed to return to the hospital or seek immediate medical care if their psychiatric or medical symptoms do worsen or reoccur. -Psychoeducation and supportive therapy provided to patient. Risks and benefits of pharmacological treatment versus the risks and benefits of nontreatment weight and discussed. Informed consent discussion held. Common side effects of psychotropics discussed such as, but not limited to headache, GI disturbance, sexual dysfunction, movement disorders, sedation, and orthostatic hypotension. Life threatening and blackbox warnings of prescribed medications also discussed. Potential risks of operating a vehicle or heavy machinery discussed with patient at length. Advised on importance of compliance and a reliable and responsible manner. Patient advised to review FDA consumer labeling of all medications prior to taking. Patient verbalized understanding of potential risk s, and agrees with current treatment plan. Patient advised to medically contact physician/emergency personnel if any acute changes in condition occur. Allergies Allergy/AdvReac Type Severity Reaction Status Date / Time No Known Allergies Allergy Verified 02/21/21 10:[address] Glu mg/dL 100 02/21/21 12:52 Hemoglobin A1c 5.1 % (4.0-6.0) 02/21/21 12:52 Triglycerides 226.0 mg/dL (0.0-149.0) H 02/21/21 12:52 Cholesterol 252 mg/dL (0-200) H 02/21/21 12:52 LDL Cholesterol, Calc 157.8 mg/dL (0.0-131.0) H 02/21/21 12:52 VLDL Cholesterol, Calc 45.20 mg/dL (5.00-40.00) H 02/21/21 12:52 HDL Cholesterol 49.0 mg/dL (40.0-60.0) 02/21/21 12:52 Cholesterol/HDL Ratio 5.14 02/21/21 12:52 TSH 5.230 mIU/L (0.465-4.680) H 02/21/21 12:52 Urine Opiates Screen Not Detected (NotDetected) 02/20/21 18:54 Ur Oxycodone Screen Not Detected (NotDetected) 02/20/21 18:54 Urine Methadone Screen Not Detected (NotDetected) 02/20/21 18:54 Ur Propoxyphene Screen Not Detected (NotDetected) 02/20/21 18:54 Ur Barbiturates Screen Not Detected (NotDetected) 02/20/21 18:54 U Tricyclic Antidepress Not Detected (NotDetected) 02/20/21 18:54 Ur Phencyclidine Scrn Not Detected (NotDetected) 02/20/21 18:54 Ur Amphetamines Screen Not Detected (NotDetected) 02/20/21 18:54 U Methamphetamines Scrn Not Detected (NotDetected) 02/20/21 18:54 U Benzodiazepines Scrn Not Detected (NotDetected) 02/20/21 18:54 [place] 0.8 mmol/L 02/22/21 07:21 Urine Cocaine Screen Not Detected (NotDetected) 02/20/21 18:54 U Marijuana (THC) Screen Not Detected (NotDetected) 02/20/21 18:54 Coronavirus (PCR) Not Detected (Not Detectd) 02/20/21 19:44 Patient Condition at Discharge: Stable Plan - Discharge Summary Discharge Rx Participant: No New Discharge Prescriptions: New Venlafaxine HCl ER [Effexor XR] 75 mg PO DAILY 30 Days Levothyroxine Sodium [Synthroid] 88 mcg PO DAILY@0800 30 Days tab [place] Carbonate 600 mg PO BID@1000,2200 30 Days cap Continue ARIPiprazole IM [Abilify Maintena] 400 mg IM Q30D Discontinued Levothyroxine Sodium [Synthroid] 88 mcg PO DAILY@0800 [place] Carbonate 1,200 mg PO HS Discharge Medication List ARIPiprazole IM [Abilify Maintena] 400 mg IM Q30D 02/20/21 [History] Levothyroxine Sodium [Synthroid] 88 mcg PO DAILY@0800 30 Days tab 02/24/21 [Rx] [place] Carbonate 600 mg PO BID@1000,2200 30 Days cap 02/24/21 [Rx] Venlafaxine HCl ER [Effexor XR] 75 mg PO DAILY 30 Days 02/24/21 [Rx] Follow up Appointment(s)/Referral(s): None,Stated [Primary Care Provider] - 1-2 days Activity/Diet/Wound Care/Special Instructions: Activity and diet as tolerated. Avoid the use of street drugs and alcohol. Take all medications as prescribed. When you are in need of refills on your medications please contact your medical provider and/or outpatient psychiatrist to have this done. Please go to scheduled outpatient appointment for aftercare treatment. If symptoms return or become worse, call the crisis line at and/or go to the nearest emergency room for evaluation. Discharge Disposition: HOME SELF-CARE
== END 2021-02-24 13:05 | disposition home or self-care (01) | DRG 885 ==
LOC: EC 18:10 → 3MHU 21:29
PROVIDERS: ADMIT Psychiatry & Neurology Psychiatry; ATTEND Psychiatry & Neurology Psychiatry
DX: F25.0 Schizoaffective disorder, bipolar type (principal); R45.851 Suicidal ideations; Z20.822 Contact with and (suspected) exposure to COVID-19; E03.9 Hypothyroidism, unspecified; F41.0 Panic disorder [episodic paroxysmal anxiety]; R45.87 Impulsiveness; K59.00 Constipation, unspecified; Z79.890 Hormone replacement therapy; Z79.899 Other long term (current) drug therapy; Z56.0 Unemployment, unspecified; Z82.49 Family history of ischemic heart disease and other diseases of the circulatory system; Z81.1 Family history of alcohol abuse and dependence
CPT/HCPCS: 80061; 80178; 80306; 82075; 83036; 84443; 87635; 99285

== ENCOUNTER → 2021-09-07 | Outpatient (CLI) | payer OTHER ==
[2021-09-07 18:22] LABS: Lithium 0.7 mmol/L (0.50-1.20)
[2021-09-07 18:29] LABS: African American GFR (CKD) 98.9 (60.0-200.0); Blood Urea Nitrogen 13.9 mg/dL (9.0-27.0); Non-African American GFR(CKD) 85.3 (60.0-200.0); T4, Free (Free Thyroxine) 0.71 ng/dL (0.800-1.800)
== END | disposition home or self-care (01) ==
LOC: LABWHC1 13:21
PROVIDERS: ATTEND Psychiatry & Neurology Psychiatry
DX: F25.0 Schizoaffective disorder, bipolar type (principal); Z79.899 Other long term (current) drug therapy
CPT/HCPCS: 36415; 80178; 82565; 84439; 84443; 84520

== ENCOUNTER → 2022-06-09 | Outpatient (CLI) | payer OTHER ==
[2022-06-09 19:10] LABS: Lithium 0.8 mmol/L (0.50-1.20)
[2022-06-09 19:45] LABS: Blood Urea Nitrogen 13.7 mg/dL (9.0-27.0); T4, Free (Free Thyroxine) 1.01 ng/dL (0.800-1.800)
== END | disposition home or self-care (01) ==
LOC: LABWHC1 11:10
PROVIDERS: ATTEND Psychiatry & Neurology Psychiatry
DX: F25.0 Schizoaffective disorder, bipolar type (principal); Z79.899 Other long term (current) drug therapy
CPT/HCPCS: 36415; 80178; 84439; 84443; 84520

== ENCOUNTER → 2022-09-07 | Outpatient (CLI) | payer OTHER ==
[2022-09-07 18:02] LABS: African American GFR (CKD) 80.2 (60.0-200.0); Blood Urea Nitrogen 12.8 mg/dL (9.0-27.0); Chol/HDL Ratio 4.17 Ratio; Glucose 96 mg/dL (70-110); LDL Cholesterol,Calculated 91.2 mg/dL (0.0-131.0); Non-African American GFR(CKD) 69.2 (60.0-200.0)
== END | disposition home or self-care (01) ==
LOC: LABWHC1 11:01
PROVIDERS: ATTEND Psychiatry & Neurology Psychiatry
DX: F25.0 Schizoaffective disorder, bipolar type (principal); Z79.899 Other long term (current) drug therapy
CPT/HCPCS: 36415; 80061; 80178; 82565; 82947; 83036; 84439; 84443; 84520

== ENCOUNTER → 2023-10-26 | Outpatient (CLI) | payer OTHER ==
[2023-10-26 11:04] LABS: Blood Urea Nitrogen 21.2 mg/dL (9.0-27.0); Glucose 91 mg/dL (70-110)
== END | disposition home or self-care (01) ==
LOC: LABWHC1 06:48
PROVIDERS: ATTEND Psychiatry & Neurology Psychiatry
DX: F25.0 Schizoaffective disorder, bipolar type (principal); Z79.899 Other long term (current) drug therapy
CPT/HCPCS: 36415; 80178; 82565; 82947; 83036; 84439; 84443; 84520

== ENCOUNTER → 2024-09-11 | Outpatient (CLI) | payer OTHER ==
[2024-09-11 15:52] LABS: Blood Urea Nitrogen 14.9 mg/dL (9.0-27.0); Chol/HDL Ratio 3.21 Ratio; Glucose 104 mg/dL (70-110); LDL Cholesterol,Calculated 88.4 mg/dL (0.0-131.0)
== END | disposition home or self-care (01) ==
LOC: LABWHC1 08:34
PROVIDERS: ATTEND Psychiatry & Neurology Psychiatry
DX: F25.0 Schizoaffective disorder, bipolar type (principal); Z79.899 Other long term (current) drug therapy
CPT/HCPCS: 36415; 80061; 80178; 82565; 82947; 83036; 84439; 84443; 84520